=== PATIENT | male | born 1975 ===

== ENCOUNTER 2017-04-23 21:26 | Observation (INO) | payer BC, OTHER ==
[2017-04-23] MEDS ORDERED: Sodium Chloride 0.9% 10 ML Syringe FLUSH PRN (21:56)
[2017-04-23] MEDS ORDERED: Sodium Chloride 0.9% 2.5 ML Syringe FLUSH PRN (21:56)
[2017-04-23] MEDS ORDERED: HYDROmorphone 2 MG/ML Syringe IVPUSH ONE (22:04)
[2017-04-23] MEDS ORDERED: Ondansetron 4 MG/2 ML SDV IVPUSH ONE (22:04)
[2017-04-23] MEDS ORDERED: Pantoprazole 40 MG Vial IVPUSH ONE (22:04)
[2017-04-23] MEDS ORDERED: Sodium Chloride 0.9% 1,000 ML IV ONE (22:04)
--- NOTE | 2017-04-23 22:04 | EDM.PDOC ---
ED HPI GENERAL MEDICAL PROBLEM - General Chief Complaint: Abdominal Pain Stated Complaint: vomiting and diarrhea Time Seen by Provider: 04/23/17 21:44 - History of Present Illness INITIAL COMMENTS - FREE TEXT/NARRATIVE: HISTORY AND PHYSICAL: History of present illness: The patient is a 41-year-old man who has no diagnosed GI problem but presents with a long-standing history of loose and pasty stools for which she has been evaluated back in 2013 here with upper and lower endoscopies as well as at [facility] the beginning of March. He said that he has a long-standing history of these loose stools and when he went to [facility] in [place] and a local clinic he had a gallbladder ultrasound performed yesterday which was negative and he had evaluation by GI where in they did not do any imaging or lab tests but recommended that he increase fiber in his diet and they placed him on the medications and his current med list. Going to the patient and at bedside there was no plan for further testing. Patient has never had any abdominal surgeries and says that his loose stools are not black or bloody and they do vary depending on what he eats. Sometimes he will have more than usual and other times a day. The patient is not here tonight for that problem he is here tonight for 6 days of epigastric discomfort associated with nausea vomiting and change in his stools. The patient says his stools have been watery for the last 6 days which is unusual for him but again they are not black or bloody. He says that every time he tries to eat something he gets nauseated and wants to vomit. He has been vomiting whenever he puts in. He says he is very hungry and he has been losing weight because he has not been eating. His pain is localized in the epigastric area and does not radiate right or left. He has not taken anything specific [id number] in addition to his regular medications. He has not had any fevers chest pain or shortness of breath and no lower abdominal pain flank pain or urinary issues. The patient says that he does feel like he is dehydrated. He has not had any recent exotic travel and he has no history of any food intolerances Review of systems: As per history of present illness and below otherwise all systems reviewed and negative. Past medical history: As per history of present illness and as reviewed below otherwise noncontributory. Surgical history: As per history of present illness and as reviewed below otherwise noncontributory. Social history: No reported history of drug or alcohol abuse. Family history: As per history of present illness and as reviewed below otherwise noncontributory. Physical exam: Gen.: Well-developed well-nourished man who is nontoxic and vital signs were reviewed by me HEENT: Atraumatic, normocephalic, pupils reactive, negative for conjunctival pallor or scleral icterus, mucous membranes tacky, throat clear, neck supple, nontender, trachea midline. Lungs: Clear to auscultation, breath sounds equal bilaterally, chest nontender. Heart: S1S2, regular, negative for clicks, rubs, or JVD. Abdomen: Soft, nondistended, hyperactive bowel sounds and there is tenderness in the epigastric area without rebound or guarding. Negative for masses or hepatosplenomegaly. Negative for costovertebral tenderness. Pelvis: Stable nontender. Genitourinary: Deferred. Rectal: Deferred. Extremities: Atraumatic, negative for cords or calf pain. Neurovascular unremarkable. Neuro: Awake, alert, oriented. Cranial nerves II through XII unremarkable. Cerebellum unremarkable. Motor and sensory unremarkable throughout. Exam nonfocal. Diagnostics: CBC CMP amylase lipase lactic acid H pylori CRP UA CT scan of the abdomen and pelvis Therapeutics: IV fluids Protonix Zofran Dilaudid 0001: Case was discussed with Dr. Hinkle our hospitalist who accepts the patient for admission as long as Dr. Whipple our surgeon will be involved. I discussed the case with Dr. Whipple at [phone] and he will be on consult. I discussed with the patient and at bedside at length all the testing results and that although we have a lot of answers we also have a lot more questions and that we will admit him here and observe him and reevaluate tomorrow to see if he is improving or needs transfer to higher level of care. Impression: Abdominal pain vomiting and diarrhea rule out gallstone pancreatitis Definitive disposition and diagnosis as appropriate pending reevaluation and review of above. 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 Gastrointestinal History: Reports: GERD - Infectious Disease History Infectious Disease History: Reports: Chicken Pox Other Infectious Disease History: childhood - Past Surgical History HEENT Surgical History: Reports: Tonsillectomy Social & Family History - Tobacco Use Smoking Status *Q: Never Smoker Second Hand Smoke Exposure: No - Caffeine Use Caffeine Use: Reports: Coffee, Energy Drinks, Soda, Tea - Recreational Drug Use Recreational Drug Use: No ED ROS GENERAL - Review of Systems Review Of Systems: ROS reveals no pertinent complaints other than HPI. ED EXAM, GENERAL - Physical Exam Exam: See Below (See dictation) Course - Vital Signs Last Recorded V/S: Last Vital Signs Temp 36.2 C 04/23/17 23:41 Pulse 80 04/23/17 23:41 Resp 17 04/23/17 23:41 BP 105/70 04/23/17 23:41 Pulse Ox 97 04/23/17 23:41 - Orders/Labs/Meds Orders: Active Orders 24 hr Category Date Time Status Patient Status [ADT] Stat ADT 04/24/17 00:15 Ordered Communication Order [RC] STAT Care 04/23/17 21:55 Active Abdomen Pelvis w Cont [CT] Stat Exams 04/23/17 21:57 Taken UA W/MICROSCOPIC [URIN] Stat Lab 04/23/17 21:55 Uncollected Sodium Chloride 0.9% [Normal Saline] 1,000 ml Med 04/24/17 00:15 Ordered IV STAT Sodium Chloride 0.9% [Saline Flush] Med 04/23/17 21:56 Active 10 ml FLUSH ASDIRECTED PRN Sodium Chloride 0.9% [Saline Flush] Med 04/23/17 21:56 Active 2.5 ml FLUSH ASDIRECTED PRN Saline Lock Insert [OM.PC] Stat Oth 04/23/17 21:55 Ordered Medication Orders Sodium Chloride (Saline Flush) 10 ml FLUSH ASDIRECTED PRN PRN Reason: Keep Vein Open Last Admin: 04/23/17 22:26 Dose: 10 ml Sodium Chloride (Saline Flush) 2.5 ml FLUSH ASDIRECTED PRN PRN Reason: Keep Vein Open Last Admin: 04/23/17 22:25 Dose: 2.5 ml Labs: Laboratory Tests 04/23/17 04/23/17 04/23/17 Range/Units 22:13 22:13 22:13 WBC 15.24 H (4.0-11.0) K/uL RBC 5.60 (4.50-5.90) M/uL Hgb 16.7 (13.0-17.0) g/dL Hct 46.7 (38.0-50.0) % MCV 83.4 (80.0-98.0) fL MCH 29.8 (27.0-32.0) pg MCHC 35.8 (31.0-37.0) g/dL RDW Std Deviation 38.9 (28.0-62.0) fl RDW Coeff of Ethan 13 (11.0-15.0) % Plt Count 216 (150-400) K/uL MPV 10.90 (7.40-12.00) fL Neut % (Auto) 60.9 (48.0-80.0) % Lymph % (Auto) 12.3 L (16.0-40.0) % [place]ne % (Auto) 8.5 (0.0-15.0) % Eos % (Auto) 18.2 H (0.0-7.0) % Baso % (Auto) 0.1 (0.0-1.5) % Neut # (Auto) 9.3 H (1.4-5.7) K/uL Lymph # (Auto) 1.9 (0.6-2.4) K/uL [place]ne # (Auto) 1.3 H (0.0-0.8) K/uL Eos # (Auto) 2.8 H (0.0-0.7) K/uL Baso # (Auto) 0.0 (0.0-0.1) K/uL Nucleated RBC % 0.0 /100WBC Nucleated RBCs # 0 K/uL Lactate 1.1 (0.20-2.00) mmol/L Sodium 140 (136-146) mmol/L Potassium 3.5 (3.5-5.1) mmol/L Chloride 107 (98-110) mmol/L Carbon Dioxide 20 L (21-31) mmol/L BUN 14 (6.0-23.0) mg/dL Creatinine 1.0 (0.6-1.5) mg/dL Est Cr Clr Drug Dosing 105.63 mL/min Estimated GFR (MDRD) > 60.0 ml/min Glucose 109 (60-110) mg/dL Calcium 8.7 L (8.8-10.8) mg/dL Total Bilirubin 1.5 (0.1-1.5) mg/dL AST 230 H (5-40) IU/L ALT 290 H (8-54) IU/L Alkaline Phosphatase 469 H (40-150) C-Reactive Protein 0.58 H (0.0-0.5) mg/dL Total Protein 6.4 (6.0-8.0) g/dL Albumin 3.9 (3.5-5.0) g/dL Globulin 2.5 (2.0-3.5) g/dL Albumin/Globulin Ratio 1.6 (1.3-2.8) Amylase 243 H (10-90) U/L Lipase 448 H (7-80) U/L H. pylori IgG Antibody (NEG) 04/23/17 Range/Units 22:13 WBC (4.0-11.0) K/uL RBC (4.50-5.90) M/uL Hgb (13.0-17.0) g/dL Hct (38.0-50.0) % MCV (80.0-98.0) fL MCH (27.0-32.0) pg MCHC (31.0-37.0) g/dL RDW Std Deviation (28.0-62.0) fl RDW Coeff of Ethan (11.0-15.0) % Plt Count (150-400) K/uL MPV (7.40-12.00) fL Neut % (Auto) (48.0-80.0) % Lymph % (Auto) (16.0-40.0) % Duc[place]ne % (Auto) (0.0-15.0) % Eos % (Auto) (0.0-7.0) % Baso % (Auto) (0.0-1.5) % Neut # (Auto) (1.4-5.7) K/uL Lymph # (Auto) (0.6-2.4) K/uL Duc[place]ne # (Auto) (0.0-0.8) K/uL Eos # (Auto) (0.0-0.7) K/uL Baso # (Auto) (0.0-0.1) K/uL Nucleated RBC % /100WBC Nucleated RBCs # K/uL Lactate (0.20-2.00) mmol/L Sodium (136-146) mmol/L Potassium (3.5-5.1) mmol/L Chloride (98-110) mmol/L Carbon Dioxide (21-31) mmol/L BUN (6.0-23.0) mg/dL Creatinine (0.6-1.5) mg/dL Est Cr Clr Drug Dosing mL/min Estimated GFR (MDRD) ml/min Glucose (60-110) mg/dL Calcium (8.8-10.8) mg/dL Total Bilirubin (0.1-1.5) mg/dL AST (5-40) IU/L ALT (8-54) IU/L Alkaline Phosphatase (40-150) C-Reactive Protein (0.0-0.5) mg/dL Total Protein (6.0-8.0) g/dL Albumin (3.5-5.0) g/dL Globulin (2.0-3.5) g/dL Albumin/Globulin Ratio (1.3-2.8) Amylase (10-90) U/L Lipase (7-80) U/L H. pylori IgG Antibody NEGATIVE (NEG) Meds: Medications Generic Name Dose Route Start Last Admin Trade Name Freq PRN Reason Stop Dose Admin Sodium Chloride 10 ml 04/23/17 21:56 04/23/17 22:26 Saline Flush FLUSH 10 ml ASDIRECTED PRN Administration Keep Vein Open Sodium Chloride 2.5 ml 04/23/17 21:56 04/23/17 22:25 Saline Flush FLUSH 2.5 ml ASDIRECTED PRN Administration Keep Vein Open Discontinued Medications Generic Name Dose Route Start Last Admin Trade Name Freq PRN Reason Stop Dose Admin Hydromorphone HCl 1 mg 04/23/17 22:04 04/23/17 22:25 Dilaudid IVPUSH 04/23/17 22:05 1 mg ONETIME ONE Administration Sodium Chloride 1,000 mls @ 999 mls/hr 04/23/17 22:04 04/23/17 22:24 Normal Saline IV 04/23/17 23:04 999 mls/hr STAT ONE Administration Iopamidol 100 ml 04/23/17 22:25 04/23/17 22:26 Isovue Multipack-370 (76%) IVPUSH 04/23/17 22:26 100 ml ONETIME STA Administration Ondansetron HCl 4 mg 04/23/17 22:04 04/23/17 22:24 Zofran IVPUSH 04/23/17 22:05 4 mg ONETIME ONE Administration Pantoprazole Sodium 80 mg 04/23/17 22:04 04/23/17 22:26 Protonix Iv IVPUSH 04/23/17 22:05 80 mg .BOLUS ONE Administration Departure - Departure Time of Disposition: 00:18 Disposition: Refer to Observation Condition: Good Clinical Impression: Abdominal pain Qualifiers: Abdominal location: epigastric Qualified Code(s): R10.13 - Epigastric pain Vomiting Qualifiers: Vomiting type: unspecified Vomiting Intractability: non-intractable Nausea presence: with nausea Qualified Code(s): R11.2 - Nausea with vomiting, unspecified - Discharge Information Referrals: Kalen Buchanan MD [Primary Care Provider] - Forms: ED Department Discharge - My Orders Last 24 Hours: My Active Orders 04/23/17 21:55 Communication Order [RC] STAT UA W/MICROSCOPIC [URIN] Stat Saline Lock Insert [OM.PC] Stat 04/23/17 21:56 Sodium Chloride 0.9% [Saline Flush] 10 ml FLUSH ASDIRECTED PRN Sodium Chloride 0.9% [Saline Flush] 2.5 ml FLUSH ASDIRECTED PRN 04/23/17 21:57 Abdomen Pelvis w Cont [CT] Stat 04/24/17 00:15 Patient Status [ADT] Stat Sodium Chloride 0.9% [Normal Saline] 1,000 ml IV STAT - Assessment/Plan Last 24 Hours: My Active Orders 04/23/17 21:55 Communication Order [RC] STAT UA W/MICROSCOPIC [URIN] Stat Saline Lock Insert [OM.PC] Stat 04/23/17 21:56 Sodium Chloride 0.9% [Saline Flush] 10 ml FLUSH ASDIRECTED PRN Sodium Chloride 0.9% [Saline Flush] 2.5 ml FLUSH ASDIRECTED PRN 04/23/17 21:57 Abdomen Pelvis w Cont [CT] Stat 04/24/17 00:15 Patient Status [ADT] Stat Sodium Chloride 0.9% [Normal Saline] 1,000 ml IV STAT
[2017-04-23] MEDS ORDERED: Iopamidol 755 MG/ML 500 ML Multipack Bottle IVPUSH STA (22:25)
[2017-04-23 22:50] LABS: CHLORIDE,CL 107 mmol/L (98-110); SODIUM,NA 140 mmol/L (136-146)
[2017-04-24] MEDS ORDERED: Sodium Chloride 0.9% 1,000 ML IV ONE (00:15)
[2017-04-24] MEDS ORDERED: Morphine 2 MG/ML Syringe IVPUSH PRN (01:07)
[2017-04-24] MEDS ORDERED: Ondansetron 4 MG/2 ML SDV IVPUSH PRN (01:08)
[2017-04-24] MEDS: Sodium Chloride 0.9% 1,000 ML IV SCH ×3 (01:26→14:42)
--- NOTE | 2017-04-24 10:01 | PCM.CONS ---
H&P History of Present Illness - General Date of Service: 04/24/17 Admit Problem/Dx: Admission Diagnosis/Problem Admission Diagnosis/Problem Abdominal pain Source of Information: Patient, Family History Limitations: Reports: No Limitations - History of Present Illness Initial Comments - Free Text/Narative: 41 y/o gentleman admitted with 1 week history of abdominal pain, N/V and diarrhea. No particular food intolerances. No fever or chills. No unexplained weight loss. Symptom Onset Date: 04/18/17 Location: Reports: Abdomen Quality: Reports: Ache Severity: Moderate Improves with: Reports: Rest Worsens with: Reports: Eating Context: Reports: Sick Contact Associated Symptoms: Reports: Loss of Appetite, Nausea/Vomiting, Other (Diarrhea ). 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 Gastrointestinal History: Reports: GERD, Irritable Bowel Syndrome - Infectious Disease History Infectious Disease History: Reports: Chicken Pox Other Infectious Disease History: childhood - Past Surgical History HEENT Surgical History: Reports: Tonsillectomy Social & Family History - Family History Family Medical History: Noncontributory - Tobacco Use Smoking Status *Q: Never Smoker Second Hand Smoke Exposure: No - Caffeine Use Caffeine Use: Reports: Soda - Recreational Drug Use Recreational Drug Use: No H&P Review of Systems - Review of Systems: Review Of Systems: See Below General: Reports: Decreased Appetite. Denies: Fever, Chills, Weight Loss HEENT: Reports: No Symptoms Pulmonary: Denies: Shortness of Breath, Wheezing Cardiovascular: Reports: No Symptoms Gastrointestinal: Reports: Abdominal Pain, Diarrhea, Decreased Appetite, Nausea , Vomiting Genitourinary: Denies: Dysuria, Frequency, Burning, Pain, Urgency Musculoskeletal: Reports: No Symptoms Skin: Denies: Jaundice Psychiatric: Reports: No Symptoms Neurological: Reports: No Symptoms Hematologic/Lymphatic: Reports: No Symptoms Immunologic: Reports: No Symptoms Exam - Exam Exam: See Below - Vital Signs Vital Signs: Last Vital Signs Temp 97.8 F 04/24/17 08:00 Pulse 84 04/24/17 08:00 Resp 16 04/24/17 08:00 BP 124/71 04/24/17 08:00 Pulse Ox 97 04/24/17 08:00 Weight: 210 lb 5.136 oz - Exam Quality Assessment: No: Supplemental Oxygen General: Alert, Oriented, Cooperative HEENT: Conjunctiva Clear, Pupils Equal, Pupils Reactive. No: Scleral Icterus Neck: Supple Lungs: Clear to Auscultation, Normal Respiratory Effort Cardiovascular: Regular Rate, Regular Rhythm GI/Abdominal Exam: Normal Bowel Sounds, Soft, Non-Tender, No Organomegaly, No Distention, No Mass (Male) Exam: Normal Inspection Rectal (Males) Exam: Deferred Back Exam: Normal Inspection Extremities: Normal Inspection Peripheral Pulses: 4+: Posterior Tibial (L), Posterior Tibial (R), Dorsalis Pedis (L), Dorsalis Pedis (R) Skin: Warm, Dry, Intact. No: Rash, Petechia, Ecchymosis Neurological: Cranial Nerves Intact Neuro Extensive - Mental Status: Alert, Oriented x3, Normal Mood/Affect Psychiatric: Alert, Normal Affect, Normal Mood. No: Anxious, Depressed - Patient Data Lab Results Last 24 hrs: Laboratory Results - last 24 hr 04/24/17 Range/Units 01:20 Urine Color DARK YELLOW Urine Appearance CLEAR Urine pH 5.0 (5.0-8.0) Ur Specific [place] 1.010 (1.001-1.035) Urine Protein NEGATIVE (NEGATIVE) mg/dL Urine Glucose (UA) NEGATIVE (NEGATIVE) mg/dL Urine Ketones 15 H (NEGATIVE) mg/dL Urine Occult Blood NEGATIVE (NEGATIVE) Urine Nitrite NEGATIVE (NEGATIVE) Urine Bilirubin NEGATIVE (NEGATIVE) Urine Urobilinogen 0.2 (<2.0) EU/dL Ur Leukocyte Esterase NEGATIVE (NEGATIVE) Urine RBC 0-1 (0-2/HPF) Urine WBC 0-1 (0-5/HPF) Ur Epithelial Cells RARE (NONE-FEW) Urine Bacteria RARE (NEGATIVE) Urine Mucus LIGHT (NONE-MOD) Result Diagrams: 04/23/17 22:13 04/23/17 22:13 [place] Results Last 24 hrs: Microbiology 04/24/17 01:35 Campylobacter Antigen Assay - Final Stool / Feces - Stool, Liquid NEGATIVE CAMPYLOBACTER AG 04/24/17 01:35 Clostridium difficile Toxin A&B (M) - Final Stool / Feces - Stool, Liquid Negative for C.Diff Toxin/AG Consult PN Assessment/Plan Procedures: Procedures ASSAY OF TROPONIN QUANT (05/26/15) CHEST X-RAY 1 VIEW FRONTAL (05/26/15) COLONOSCOPY AND BIOPSY (01/23/14) COMPLETE CBC W/AUTO DIFF WBC (05/26/15) COMPREHEN METABOLIC PANEL (05/26/15) CONTRAST X-RAY EXAM OF COLON (12/12/13) CT HEAD/BRAIN W/O DYE (05/26/15) ECHO EXAM OF ABDOMEN (04/22/17) EGD BIOPSY SINGLE/MULTIPLE (01/23/14) EMERGENCY DEPT VISIT (05/26/15) HYDRATION IV INFUSION INIT (05/26/15) ROUTINE VENIPUNCTURE (05/26/15) SPECIAL STAINS GROUP 1 (01/23/14) TISSUE EXAM BY PATHOLOGIST (01/23/14) URINALYSIS AUTO W/SCOPE (05/26/15) (1) Abnormal liver function tests SNOMED Code(s): 708602963 Code(s): R79.89 - OTHER SPECIFIED ABNORMAL FINDINGS OF BLOOD CHEMISTRY Priority: Medium Current Visit: Yes (2) Hyperamylasemia SNOMED Code(s): 838888760 Code(s): R74.8 - ABNORMAL LEVELS OF OTHER SERUM ENZYMES Priority: Medium Current Visit: Yes (3) Abdominal pain SNOMED Code(s): 35960311 Code(s): R10.9 - UNSPECIFIED ABDOMINAL PAIN Priority: Medium Current Visit: Yes Qualifiers: Abdominal location: epigastric Qualified Code(s): R10.13 - Epigastric pain (4) Vomiting SNOMED Code(s): 356955436 Code(s): R11.10 - VOMITING, UNSPECIFIED Priority: Medium Current Visit: Yes Qualifiers: Vomiting type: unspecified Vomiting Intractability: non-intractable Nausea presence: with nausea Qualified Code(s): R11.2 - Nausea with vomiting, unspecified (5) Headache SNOMED Code(s): 40011565 Code(s): R51 - HEADACHE Priority: Low Current Visit: No Qualifiers: Intractability: not intractable (6) Diarrhea SNOMED Code(s): 44353609 Code(s): R19.7 - DIARRHEA, UNSPECIFIED Priority: Medium Current Visit: Yes Qualifiers: Diarrhea type: unspecified type Qualified Code(s): R19.7 - Diarrhea, unspecified Problem List Initiated/Reviewed/Updated: Yes Plan: Abdominal pain of unknown etiology with elevated LFT's and leucocytosis. Patient doesn't appear in acute distress this morning. CT report reportedly suggests cholelithiasis despite a negative GBUS. Note H pylori AB is negative. Recommend: 1) clear liquids, 2) NPO after midnight, 3) MRCP in the morning, 4) repeat LFT's in 12-24 hours. If MRCP is negative, consider EGD on an outpatient basis. Don't see any reason for emergent EGD today. Thank you.
--- NOTE | 2017-04-24 12:15 | PCM.HP ---
H&P History of Present Illness - General Admit Problem/Dx: Admission Diagnosis/Problem Admission Diagnosis/Problem Abdominal pain - History of Present Illness Initial Comments - Free Text/Narative: 41 yo male with pmh of IBS who presents with one week history of abdominal pain and loose stools. Patient reported epigastric tenderness. He also reports nausea and vomiting after eating food. He reports 15 or more loose stools a day. diarrhea is worse than his normal IBS symptoms. He denies any fevers or chills. In the ED he was noted to have elevated AST,at 230, ALT 290 , and Alk phos at 469 and lipase at 448. WBC was 15,240 and Bilirubin was normal. CT scan of abdomen reported cholelithiasis without evidence of cholecystitis and fluid rention within small bowel and liquid stool in colon. 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 Gastrointestinal History: Reports: GERD, Irritable Bowel Syndrome - Infectious Disease History Infectious Disease History: Reports: Chicken Pox Other Infectious Disease History: childhood - Past Surgical History HEENT Surgical History: Reports: Tonsillectomy Social & Family History - Family History Family Medical History: Noncontributory - Tobacco Use Smoking Status *Q: Never Smoker Second Hand Smoke Exposure: No - Caffeine Use Caffeine Use: Reports: Soda - Recreational Drug Use Recreational Drug Use: No H&P Review of Systems - Review of Systems: Review Of Systems: ROS reveals no pertinent complaints other than HPI. Exam - Exam Exam: See Below - Vital Signs Vital Signs: Last Vital Signs Temp 36.6 C 04/24/17 08:00 Pulse 84 04/24/17 08:00 Resp 16 04/24/17 08:00 BP 124/71 04/24/17 08:00 Pulse Ox 97 04/24/17 08:00 Weight: 95.4 kg - Exam Lungs: Clear to Auscultation, Normal Respiratory Effort Cardiovascular: Regular Rate, Regular Rhythm GI/Abdominal Exam: Normal Bowel Sounds, Soft, Non-Tender. No: No Mass, Distended, Rebound Extremities: Normal Range of Motion, No Pedal Edema Skin: Warm, Dry, Intact - Patient Data Lab Results Last 24 hrs: Laboratory Results - last 24 hr 04/24/17 Range/Units 01:20 Urine Color DARK YELLOW Urine Appearance CLEAR Urine pH 5.0 (5.0-8.0) Ur Specific [place] 1.010 (1.001-1.035) Urine Protein NEGATIVE (NEGATIVE) mg/dL Urine Glucose (UA) NEGATIVE (NEGATIVE) mg/dL Urine Ketones 15 H (NEGATIVE) mg/dL Urine Occult Blood NEGATIVE (NEGATIVE) Urine Nitrite NEGATIVE (NEGATIVE) Urine Bilirubin NEGATIVE (NEGATIVE) Urine Urobilinogen 0.2 (<2.0) EU/dL Ur Leukocyte Esterase NEGATIVE (NEGATIVE) Urine RBC 0-1 (0-2/HPF) Urine WBC 0-1 (0-5/HPF) Ur Epithelial Cells RARE (NONE-FEW) Urine Bacteria RARE (NEGATIVE) Urine Mucus LIGHT (NONE-MOD) Result Diagrams: 04/25/17 06:01 04/25/17 06:01 [place] Results Last 24 hrs: Microbiology 04/24/17 01:35 Campylobacter Antigen Assay - Final Stool / Feces - Stool, Liquid NEGATIVE CAMPYLOBACTER AG 04/24/17 01:35 Clostridium difficile Toxin A&B (M) - Final Stool / Feces - Stool, Liquid Negative for C.Diff Toxin/AG *Q Meaningful Use (ADM) - VTE *Q VTE Criteria *Q: - Stroke *Q Stroke Criteria *Q: - AMI *Q AMI Criteria *Q: Problem List Initiated/Reviewed/Updated: Yes Orders Last 24hrs: Active Orders 24 hr Category Date Time Status Antiembolic Devices [RC] PER UNIT ROUTINE Care 04/24/17 12:08 Ordered Intake and Output [RC] QSHIFT Care 04/24/17 12:08 Ordered Notify Provider Consults [RC] ASDIRECTED Care 04/24/17 00:19 Active Oxygen Therapy [RC] PRN Care 04/24/17 12:07 Ordered Up ad Nicolle [RC] ASDIRECTED Care 04/24/17 12:07 Ordered VTE/DVT Education [RC] PER UNIT ROUTINE Care 04/24/17 12:07 Ordered Vital Signs [RC] Q4H Care 04/24/17 12:07 Ordered Consult to Physician [CONS] Stat Cons 04/24/17 00:19 Active Clear Liquid Diet [DIET] Diet 04/24/17 Breakfast Ordered NPO After Midnight [Nothing per Oral After Midnight Diet 04/24/17 Dinner Ordered Diet] [DIET] Abdomen w Cont [MR] Routine Exams 04/24/17 12:04 Ordered CBC WITH AUTO DIFF [HEME] Routine Lab 04/24/17 12:03 Ordered COMPREHENSIVE METABOLIC PN,CMP [CHEM] Routine Lab 04/24/17 12:03 Ordered CULTURE STOOL + CAMPY+SHIGATOX [RM] Routine Lab 04/24/17 01:35 Results LIPASE [CHEM] Routine Lab 04/24/17 12:03 Ordered LIPID PANEL [CHEM] Routine Lab 04/24/17 12:10 Ordered Morphine Med 04/24/17 01:07 Active 2 mg IVPUSH Q3H PRN Ondansetron [Zofran] Med 04/24/17 01:08 Active 4 mg IVPUSH Q3H PRN Sodium Chloride 0.9% [Normal Saline] 1,000 ml Med 04/24/17 01:15 Active IV ASDIRECTED Sequential Compression Device [OM.PC] Per Unit Routine Oth 04/24/17 12:08 Ordered Resuscitation Status Routine Resus Stat 04/24/17 12:07 Ordered Medication Orders Sodium Chloride (Normal Saline) 1,000 mls @ 150 mls/hr IV ASDIRECTED FRANKY Last Admin: 04/24/17 08:07 Dose: 150 mls/hr Infusion: 04/24/17 08:07 Dose: 150 mls/hr Admin: 04/24/17 01:26 Dose: 150 mls/hr Morphine Sulfate (Morphine) 2 mg IVPUSH Q3H PRN PRN Reason: Pain Last Admin: 04/24/17 01:24 Dose: 2 mg Ondansetron HCl (Zofran) 4 mg IVPUSH Q3H PRN PRN Reason: Nausea/Vomiting Sodium Chloride (Saline Flush) 10 ml FLUSH ASDIRECTED PRN PRN Reason: Keep Vein Open Last Admin: 04/23/17 22:26 Dose: 10 ml Sodium Chloride (Saline Flush) 2.5 ml FLUSH ASDIRECTED PRN PRN Reason: Keep Vein Open Last Admin: 04/23/17 22:25 Dose: 2.5 ml Assessment/Plan Comment:: 41 yo admitted for pancreatitis and gastroenteritis. We will continue fluid rescucitation with IV normal saline. PAtient symptoms have improved and abdominal pain has resolved so will start clear liquid diet. We will recheck CBC and CMP. Stool studies have been sent. He does have possible gallstone pancreatitis. Dr. Whipple was consulted and recommended MRCP tomorrow.
[2017-04-24 12:44] LABS: CHLORIDE,CL 113 mmol/L (98-110); SODIUM,NA 141 mmol/L (136-146)
[2017-04-24] MEDS: Pantoprazole 40 MG Vial IVPUSH SCH ×2 (13:04→22:24)
[2017-04-24] MEDS ORDERED: Acetaminophen 325 MG Tab PO PRN (13:32)
[2017-04-24] MEDS: Loperamide 2 MG Cap PO PRN (22:32)
[2017-04-25] MEDS: Sodium Chloride 0.9% 1,000 ML IV SCH (00:27)
[2017-04-25 06:32] LABS: CHLORIDE,CL 112 mmol/L (98-110); SODIUM,NA 141 mmol/L (136-146)
[2017-04-25] MEDS: Pantoprazole 40 MG Vial IVPUSH SCH (08:36)
[2017-04-25] MEDS: Loperamide 2 MG Cap PO PRN (08:41)
--- NOTE | 2017-04-25 15:29 | MR ---
EXAMINATION: MRCP HISTORY: Gallstone pancreatitis COMPARISON: CT dated 04/23/2017 TECHNIQUE: Multiplanar and multisequence Noncontrast imaging obtained of the abdomen. Thick slab map reconstructions obtained. FINDINGS: The liver and spleen are normal in signal characteristics. The adrenal glands appear normal . Pancreas appears grossly unremarkable in signal without significant pancreatic edema. There is like ly a trace pericholecystic fluid noted. The gallbladder itself however is not notably distended. The cystic duct has a long course which parallels the common bile duct and inserts at the ampulla. Pancre atic and common bile ducts are normal in caliber. No definite filling defect within the common bile d uct. A filling defect within the proximal cystic duct near the gallbladder is not excluded. No bulky retroperitoneal lymphadenopathy. The kidneys appear normal. No abnormal bone marrow signal. IMPRESSION: 1. Trace pericholecystic fluid, this may represent cholecystitis. 2. The cystic duct is apparent and has a long course which parallels the common bile duct and inserts at the ampulla of [place]. 3. No evidence of choledocholithiasis.
[2017-04-25 16:04] VITALS: BP 118/70
--- NOTE | 2017-04-25 16:46 | PCM.DCSUM1 ---
Discharge Summary - Hospital Course Brief History: This 41 year o male with pmh of IBS who presents with one week history of epigastric abdominal pain, N/V, early satiety and loose stools. Patient reported epigastric tenderness. He also reports nausea and vomiting after eating food. He reports 15 or more loose stools a day. diarrhea is worse than his normal IBS symptoms. He denies any fevers or chills. In the ED he was noted to have elevated AST,at 230, ALT 290 , and Alk phos at 469 and lipase at 448. WBC was 15,240 and Bilirubin was normal. CT scan of abdomen reported cholelithiasis without evidence of cholecystitis and fluid rention within small bowel and liquid stool in colon. - Discharge Data Discharge Date: 04/25/17 Discharge Disposition: Home, Self-Care 01 Condition: Good - Discharge Diagnosis/Problem(s) (1) Abdominal pain SNOMED Code(s): 45423427 ICD Code: R10.9 - UNSPECIFIED ABDOMINAL PAIN Status: Acute Priority: Medium Qualifiers: Abdominal location: epigastric Qualified Code(s): R10.13 - Epigastric pain (2) Abnormal liver function tests SNOMED Code(s): 898718481 ICD Code: R79.89 - OTHER SPECIFIED ABNORMAL FINDINGS OF BLOOD CHEMISTRY Status: Acute Priority: Medium (3) Diarrhea SNOMED Code(s): 11140511 ICD Code: R19.7 - DIARRHEA, UNSPECIFIED Status: Acute Priority: Medium Qualifiers: Diarrhea type: unspecified type Qualified Code(s): R19.7 - Diarrhea, unspecified (4) Vomiting SNOMED Code(s): 479199806 ICD Code: R11.10 - VOMITING, UNSPECIFIED Status: Acute Priority: Medium Qualifiers: Vomiting type: unspecified Vomiting Intractability: non-intractable Nausea presence: with nausea Qualified Code(s): R11.2 - Nausea with vomiting, unspecified - Patient Summary/Data Consults: Consultations 04/24/17 00:19 Consult to Physician [CONS] Stat - Patient Instructions Diet: Drink 8-10+ Glasses/Day, Full Liquid Diet, GI Soft/Low Residue/Low Fiber Diet, Other: low fat Activity: As Tolerated Showering/Bathing: May Shower Notify Provider of: Fever, Increased Pain, Swelling and Redness, Drainage, Nausea and/or Vomiting Other/Special Instructions: Dr Gabino Bynum's nurse will be contacting you for appointment with his office. He will refer you to General surgeon for gallbladder removal. - Discharge Plan Home Medications: Home Meds Hyoscyamine Sulfate [Hyoscyamine Sulfate] 1 tab PO ASDIRECTED PRN 04/23/17 [ History] Omeprazole [Omeprazole] 20 mg PO DAILY 04/23/17 [History] Patient Handouts: Abdominal Pain, Adult Referrals: [facility] [Outside] Da Lloyd MD [Ordering Only Provider] - 06/20/17 3:30 pm - Discharge Summary/Plan Comment DC Time >30 min.: No Discharge Summary/Plan Comment: Discharge Diagnoses: Gallstone induce pancreatitis-resolved Diarrhea- noninfectious IBS Paul was admitted and treated with IVFs fluid for suspected gall stone induced pancreatitis. Dr. Whipple was consulted and recommended MRCP to be obtained. He was given fluids and after a period of NPO, he tolerated some CL and soft diet without increasing pain or N/V. MRCP was obtained which showed trace pericholecystic fluid, may represent cholecystitis, no filling defect in common bile duct and gallbladder is not noteably distended, no evidence of choledocholithiasis. I spoke with Dr. Whipple, who was concerned regarding the esosinophilia and recommended I speak with GI specialist prior to a surgeon for cholecystectomy. I spoke with Dr. Lloyd, at [facility]. He recommended conitnued treated with IVFs until patient able to tolerated diet and to monitor LFTs upon discharge if not back to baseline. He will gladly see patient, but feels the diarrhea is not an urgent matter and he will address this with the patient. But he will see him and then make the referral to the surgeon for the cholecystectomy. All of this information was relayed to patient and . KYLEIGH Bynum Dr's nurse will contact them with appointment date sooner than previously scheduled Jun 20. He will be discharged home with home medications. He was tolerating soft bland diet. Diarrhea continues but is again not infectious and near baseline. He does need further workup for IBS like symptoms. he is to return to clinic for check for CMP to monitor LFTs in a couple days. Follow up in [place] as arranged. He is to return to ED or clinic of concerns should arise. - General Info Date of Service: 04/25/17 Admission Dx/Problem (Free Text: Admission Diagnosis/Problem Admission Diagnosis/Problem Abdominal pain Subjective Update: Patient doing well scant tenderness epigastric. Tolerating CL diet and soft bland after MRCP. Requesting discharge tonight. Denies chest pain or SOB. Diarrhea continues. Functional Status: Reports: Pain Controlled, Tolerating Diet, Ambulating, Urinating - Review of Systems Pulmonary: Reports: No Symptoms. Denies: Shortness of Breath Cardiovascular: Reports: No Symptoms. Denies: Chest Pain Gastrointestinal: Reports: Diarrhea, Flatus. Denies: Abdominal Pain, Nausea, Vomiting Genitourinary: Reports: No Symptoms. Denies: Dysuria, Frequency, Burning, Pain Neurological: Reports: No Symptoms. Denies: Confusion Psychiatric: Reports: No Symptoms. Denies: Confusion - Patient Data Vitals - Most Recent: Last Vital Signs Temp 97.6 F 04/25/17 16:00 Pulse 89 04/25/17 16:00 Resp 22 H 04/25/17 16:00 BP 118/70 04/25/17 16:00 Pulse Ox 98 04/25/17 16:00 Weight - Most Recent: 94.256 kg I&O - Last 24 hours: Intake & Output 04/25/17 04/25/17 04/25/17 06:59 14:59 22:59 Intake Total 480 Output Total 400 Balance 80 Lab Results - Last 24 hrs: Laboratory Results - last 24 hr 04/25/17 04/25/17 Range/Units 06:01 06:01 WBC 11.81 H (4.0-11.0) K/uL RBC 4.67 (4.50-5.90) M/uL Hgb 13.7 (13.0-17.0) g/dL Hct 39.7 (38.0-50.0) % MCV 85.0 (80.0-98.0) fL MCH 29.3 (27.0-32.0) pg MCHC 34.5 (31.0-37.0) g/dL RDW Std Deviation 39.8 (28.0-62.0) fl RDW Coeff of Ethan 13 (11.0-15.0) % Plt Count 172 (150-400) K/uL MPV 10.40 (7.40-12.00) fL Neut % (Auto) 40.8 L (48.0-80.0) % Lymph % (Auto) 20.9 (16.0-40.0) % [place] % (Auto) 4.4 (0.0-15.0) % Eos % (Auto) 33.8 H (0.0-7.0) % Baso % (Auto) 0.1 (0.0-1.5) % Neut # (Auto) 4.8 (1.4-5.7) K/uL Lymph # (Auto) 2.5 H (0.6-2.4) K/uL [place] # (Auto) 0.5 (0.0-0.8) K/uL Eos # (Auto) 4.0 H (0.0-0.7) K/uL Baso # (Auto) 0.0 (0.0-0.1) K/uL Nucleated RBC % 0.0 /100WBC Nucleated RBCs # 0 K/uL Sodium 141 (136-146) mmol/L Potassium 3.4 L (3.5-5.1) mmol/L Chloride 112 H (98-110) mmol/L Carbon Dioxide 22 (21-31) mmol/L BUN 4 L (6.0-23.0) mg/dL Creatinine 0.8 (0.6-1.5) mg/dL Est Cr Clr Drug Dosing 131.50 mL/min Estimated GFR (MDRD) > 60.0 ml/min Glucose 92 (60-110) mg/dL Calcium 7.9 L (8.8-10.8) mg/dL Total Bilirubin 0.5 (0.1-1.5) mg/dL AST 40 (5-40) IU/L ALT 136 H (8-54) IU/L Alkaline Phosphatase 281 H (40-150) Total Protein 5.1 L (6.0-8.0) g/dL Albumin 3.2 L (3.5-5.0) g/dL Globulin 1.9 L (2.0-3.5) g/dL Albumin/Globulin Ratio 1.7 (1.3-2.8) SHARON Results - Last 24 hrs: Microbiology 04/24/17 01:35 Campylobacter Antigen Assay - Final Stool / Feces - Stool, Liquid NEGATIVE CAMPYLOBACTER AG - Final NEGATIVE FOR SHIGA TOXIN 1 - Final NEGATIVE FOR SHIGA TOXIN 2 Med Orders - Current: Current Medications Acetaminophen (Tylenol) 325 mg PO Q6H PRN PRN Reason: Headache Last Admin: 04/24/17 13:38 Dose: 325 mg Sodium Chloride (Normal Saline) 1,000 mls @ 150 mls/hr IV ASDIRECTED FRANKY Last Admin: 04/25/17 00:27 Dose: 150 mls/hr Loperamide HCl (Imodium) 4 mg PO Q6H PRN PRN Reason: diarrhea Last Admin: 04/25/17 08:41 Dose: 4 mg Morphine Sulfate (Morphine) 2 mg IVPUSH Q3H PRN PRN Reason: Pain Last Admin: 04/24/17 01:24 Dose: 2 mg Ondansetron HCl (Zofran) 4 mg IVPUSH Q3H PRN PRN Reason: Nausea/Vomiting Pantoprazole Sodium (Protonix Iv) 40 mg IVPUSH Q12HR FRANKY Last Admin: 04/25/17 08:36 Dose: 40 mg Sodium Chloride (Saline Flush) 10 ml FLUSH ASDIRECTED PRN PRN Reason: Keep Vein Open Last Admin: 04/23/17 22:26 Dose: 10 ml Sodium Chloride (Saline Flush) 2.5 ml FLUSH ASDIRECTED PRN PRN Reason: Keep Vein Open Last Admin: 04/23/17 22:25 Dose: 2.5 ml Discontinued Medications Hydromorphone HCl (Dilaudid) 1 mg IVPUSH ONETIME ONE Stop: 04/23/17 22:05 Last Admin: 04/23/17 22:25 Dose: 1 mg Sodium Chloride (Normal Saline) 1,000 mls @ 999 mls/hr IV STAT ONE Stop: 04/23/17 23:04 Last Admin: 04/23/17 22:24 Dose: 999 mls/hr Sodium Chloride (Normal Saline) 1,000 mls @ 999 mls/hr IV STAT ONE Stop: 04/24/17 01:15 Last Admin: 04/24/17 00:22 Dose: 999 mls/hr Iopamidol (Isovue Multipack-370 (76%)) 100 ml IVPUSH ONETIME STA Stop: 04/23/17 22:26 Last Admin: 04/23/17 22:26 Dose: 100 ml Ondansetron HCl (Zofran) 4 mg IVPUSH ONETIME ONE Stop: 04/23/17 22:05 Last Admin: 04/23/17 22:24 Dose: 4 mg Pantoprazole Sodium (Protonix Iv) 80 mg IVPUSH .BOLUS ONE Stop: 04/23/17 22:05 Last Admin: 04/23/17 22:26 Dose: 80 mg - Exam General: Reports: Alert, Oriented, Cooperative, No Acute Distress Lungs: Reports: Clear to Auscultation, Normal Respiratory Effort Cardiovascular: Reports: Regular Rate, Regular Rhythm GI/Abdominal Exam: Normal Bowel Sounds, Soft, No Organomegaly, No Distention, No Abnormal Bruit, No Mass, Pelvis Stable, Tender (scant tenderness to epigastric region) Extremities: Normal Inspection, Normal Range of Motion, Non-Tender, No Pedal Edema, Normal Capillary Refill Neurological: Reports: No New Focal Deficit Psy/Mental Status: Reports: Alert, Normal Affect, Normal Mood *Q Meaningful Use (DIS) - VTE *Q VTE Criteria *Q: - Stroke *Q Stroke Criteria *Q: - AMI *Q AMI Criteria *Q:
--- NOTE | 2017-04-25 17:41 | CT ---
EXAM DATE: 04/24/17 PATIENT'S AGE: 41 Patient: SARA BRADSHAW Facility: [place], [place] Site . Site : 1975 Study: CT Abdomen/Pelvis [id number] 11:22:17 PM Ordering Physician: Renetta Monsivais Final Report: INDICATION: Epigastric pain. Recent negative ultrasound. TECHNIQUE: CT abdomen and pelvis acquired with 100 mL of Isovue 370 IV contrast. COMPARISON: No prior CT available. FINDINGS: Lower chest: Unremarkable. Liver: Too small to characterize low-density lesions in the left lobe likely represent cysts. Spleen: Unremarkable. Pancreas: Unremarkable. Gallbladder and bile ducts: Calcified stones above the neck of the gallbladder. No CT evidence of cholecystitis. No biliary ductal dilatation. Kidneys: No evidence of urolithiasis or hydroureteronephrosis. Adrenal glands: 9 mm nodule in the right adrenal gland cannot be definitely characterized as an adenoma on the basis of this enhanced study. The adrenal glands are otherwise unremarkable. GI tract: There is fluid retention within small bowel and liquid stool throughout the colon. No discrete bowel wall thickening. No bowel obstruction. The appendix is normal in appearance. No free air or free fluid. Vascular structures: Unremarkable. Lymph nodes: Unremarkable. Pelvic Organs: Unremarkable. Bones: No acute abnormality. IMPRESSION: Cholelithiasis about the neck of the gallbladder. No CT evidence of cholecystitis. No biliary ductal dilatation. Fluid retention within small bowel and liquid stool in the colon suggesting a nonspecific enteritis. No bowel obstruction. 9 mm right adrenal nodule is incompletely characterized but thought to most likely represent a benign adenoma. Dictated by Carroll Agarwal MD @ 04/23/2017 11:34:38 PM Dictated by: Carroll Agarwal MD @ 04/23/2017 23:35:03 (Electronic Signature) Report Signed by Proxy. CHELSEA
== END 2017-04-25 17:15 | disposition home or self-care (01) ==
LOC: MW.ED 21:26 → MW.MS 04-24 00:15
PROVIDERS: ADMIT Internal Medicine; ATTEND Internal Medicine
DX: K85.10 Biliary acute pancreatitis without necrosis or infection (principal); R79.89 Other specified abnormal findings of blood chemistry; K80.20 Calculus of gallbladder without cholecystitis without obstruction; K58.0 Irritable bowel syndrome with diarrhea; K21.9 Gastro-esophageal reflux disease without esophagitis; I69.398 Other sequelae of cerebral infarction; H91.92 Unspecified hearing loss, left ear; R74.8 Abnormal levels of other serum enzymes; R51 Headache; Z79.899 Other long term (current) drug therapy; Z88.8 Allergy status to other drugs, medicaments and biological substances; Z90.89 Acquired absence of other organs
CPT/HCPCS: 36415; 74177; 74181; 80053; 80061; 81001; 82150; 83605; 83690; 85025; 86140; 86677; 87046; 87324; 87328; 87329; 87899; 96361; 96374; 96375; 96376; 99285; A9270; C9113; G0378; J1170; J2270; J2405; J7040; Q9967; 99284

== ENCOUNTER 2017-04-29 05:35 | Inpatient (IN) | payer BC, OTHER ==
[2017-04-29] MEDS ORDERED: Sodium Chloride 0.9% 2.5 ML Syringe FLUSH PRN (05:55)
[2017-04-29] MEDS ORDERED: Sodium Chloride 0.9% 10 ML Syringe FLUSH PRN (05:55)
[2017-04-29] MEDS ORDERED: Sodium Chloride 0.9% 1,000 ML IV ONE (05:55)
[2017-04-29] MEDS ORDERED: HYDROmorphone 2 MG/ML Syringe IVPUSH ONE (05:55)
[2017-04-29] MEDS ORDERED: Ondansetron 4 MG/2 ML SDV IVPUSH ONE (05:55)
--- NOTE | 2017-04-29 06:05 | EDM.PDOC ---
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 The patient had had an outpatient gallbladder ultrasound which is negative but then presented to me with severe upper abdominal pain nausea and vomiting and had a CAT scan performed and labs in the ER which revealed an elevated WBC count elevated lipase and elevated liver enzymes. CT scan showed gallstones but no evidence of issues of the pancreas. Due to the conflicting studies and the patient's level of pain he was admitted to the hospital and reported to the medicine service that he had a diagnosis of IBS and that the diarrhea when he was admitted was more loose and more frequent than usual. He had never had any fevers or chills chest pain or shortness of breath. He was treated when he was here with IV fluids and a suspected gallstone induced pancreatitis. Dr. Whipple the surgeon was consulted and recommended an MRCP to be performed which was done and revealed trace pericholecystic fluid which could represent cholecystitis but no filling defect in the common bile duct no distention of the gallbladder and no evidence of choledocholithiasis. The team here spoke with Dr. Lloyd, a outside installer apprentice at [facility] in [place] who recommended continued IV fluids until the patient is able to tolerate diet and to monitor his LFTs. He had an appointment scheduled to see this GI doctor on June 19 to evaluate his IBS symptoms and the patient was feeling improved so is discharged home. He was told that the GI physician's office would contact him to move the appointment up sooner but according to the patient know what has contacted them yet. He followed up with his provider Dr. Mera who had a phone conversation with the outside installer apprentice and, according to the patient, his primary was told that his gallbladder needed to come out first and that the diarrhea workup could be secondary. Patient had repeat labs done 1-2 days after discharge performed to monitor the LFTs and on my review of them they're very similar to the results he had when he was discharged but improved from when I had admitted him. The patient said he was tolerating the discomfort using his medications that he was given by Dr. Mera, oxycodone and tramadol, which he was using very sparingly but then yesterday at 2 PM and had increased intensity of his upper abdominal pain in the epigastrium radiating to both sides associated with nausea and vomiting of bile. He did not have a fever back pain or chest pain. The patient said initially he took the pain medications and it seemed to help the pain but this morning he started vomiting the bile again and is having severe pain and cannot tolerate by mouth. The patient is again very frustrated with this pain and feels that he needs to have his gallbladder removed. Does not want to have Dr. Whipple involved in this case it is specifically stated that to me. He continues to have these frequent bowel movements since his discharge but they' re not black or bloody and he has never had any vomiting over black or bloody vomitus. Review of systems: As per history of present illness and below otherwise all systems reviewed and negative. Past medical history: As per history of present illness and as reviewed below otherwise noncontributory. Surgical history: As per history of present illness and as reviewed below otherwise noncontributory. Social history: No reported history of drug or alcohol abuse. Family history: As per history of present illness and as reviewed below otherwise noncontributory. Physical exam: General: Well-developed well-nourished man who is nontoxic and moves easily in the ED without distress. His vital signs reviewed by me HEENT: Atraumatic, normocephalic, negative for conjunctival pallor or scleral icterus, mucous membranes tacky, throat clear, neck supple, nontender, trachea midline. Lungs: Clear to auscultation, breath sounds equal bilaterally, chest nontender. Heart: S1S2, regular rate and rhythm no overt murmurs Abdomen: Soft, nondistended, mild tenderness on deep palpation in the epigastrium and slightly to the right but there is no left upper abdominal pain no tympany on percussion and bowel sounds are normoactive. There is no rebound or guarding on my evaluation. Negative for masses or hepatosplenomegaly. Pelvis: Deferred Genitourinary: Deferred. Rectal: Deferred. Extremities: Atraumatic, negative for cords or calf pain. Neurovascular unremarkable. Neuro: Awake, alert, oriented. Cranial nerves II through XII unremarkable. Cerebellum unremarkable. Motor and sensory unremarkable throughout. Exam nonfocal. skin: Normal turgor no evidence of any diaphoresis Diagnostics: CBC CMP amylase lipase lactic acid Therapeutics: IV fluids Zofran Dilaudid 0708: Case was discussed with Dr. Cabrera our surgeon. She is aware of this case and had spoken to the patient and family yesterday about being seen in clinic and advising him that if his pain persisted to come to the ER. She wants the patient to be admitted to the hospitalist and she will do a formal consult floor. I will discuss this case with our hospitalist Dr. Hinkle and plan for observation admission Impression: Recurrent abdominal pain Definitive disposition and diagnosis as appropriate pending reevaluation and review of above. 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 Cardiovascular History: Reports: None Respiratory History: Reports: None Gastrointestinal History: Reports: GERD, Irritable Bowel Syndrome, Other (See Below) Other Gastrointestinal History: Gallstones Genitourinary History: Reports: None Neurological History: Reports: None Psychiatric History: Reports: None Endocrine/Metabolic History: Reports: None Hematologic History: Reports: None Immunologic History: Reports: None Oncologic (Cancer) History: Reports: None Dermatologic History: Reports: None - Infectious Disease History Infectious Disease History: Reports: Chicken Pox Other Infectious Disease History: childhood - Past Surgical History Head Surgeries/Procedures: Reports: None HEENT Surgical History: Reports: Tonsillectomy GI Surgical History: Reports: None Social & Family History - Family History Family Medical History: Noncontributory - Tobacco Use Smoking Status *Q: Never Smoker Second Hand Smoke Exposure: No - Caffeine Use Caffeine Use: Reports: Soda - Recreational Drug Use Recreational Drug Use: No ED ROS GENERAL - Review of Systems Review Of Systems: ROS reveals no pertinent complaints other than HPI. ED EXAM, GENERAL - Physical Exam Exam: See Below (See dictation) Course - Vital Signs Last Recorded V/S: Last Vital Signs Temp 36.6 C 04/29/17 05:43 Pulse 108 H 04/29/17 05:43 Resp 18 04/29/17 05:43 BP 127/83 04/29/17 05:43 Pulse Ox 98 04/29/17 05:43 - Orders/Labs/Meds Orders: Active Orders 24 hr Category Date Time Status Patient Status [ADT] Stat ADT 04/29/17 07:14 Ordered Notify Provider Consults [RC] ASDIRECTED Care 04/29/17 07:14 Ordered Consult to Physician [CONS] Stat Cons 04/29/17 07:14 Ordered Sodium Chloride 0.9% [Saline Flush] Med 04/29/17 05:55 Active 10 ml FLUSH ASDIRECTED PRN Sodium Chloride 0.9% [Saline Flush] Med 04/29/17 05:55 Active 2.5 ml FLUSH ASDIRECTED PRN Saline Lock Insert [OM.PC] Stat Oth 04/29/17 05:55 Ordered Medication Orders Sodium Chloride (Saline Flush) 10 ml FLUSH ASDIRECTED PRN PRN Reason: Keep Vein Open Sodium Chloride (Saline Flush) 2.5 ml FLUSH ASDIRECTED PRN PRN Reason: Keep Vein Open Labs: Laboratory Tests 04/29/17 04/29/17 04/29/17 Range/Units 06:06 06:06 06:06 WBC 14.11 H (4.0-11.0) K/uL RBC 5.20 (4.50-5.90) M/uL Hgb 15.5 (13.0-17.0) g/dL Hct 43.5 (38.0-50.0) % MCV 83.7 (80.0-98.0) fL MCH 29.8 (27.0-32.0) pg MCHC 35.6 (31.0-37.0) g/dL RDW Std Deviation 39.1 (28.0-62.0) fl RDW Coeff of Ethan 13 (11.0-15.0) % Plt Count 183 (150-400) K/uL MPV 10.60 (7.40-12.00) fL Add Manual Diff YES Neutrophils % (Manual) 35 L (48.0-80.0) % Band Neutrophils % 1 % Lymphocytes % (Manual) 23 (16.0-40.0) % Monocytes % (Manual) 1 (0.0-15.0) % Eosinophils % (Manual) 40 H (0.0-7.0) % Nucleated RBC % 0.0 /100WBC Absolute Seg Neuts 4.9 (1.4-5.7) Band Neutrophils # 0.1 Lymphocytes # (Manual) 3.2 H (0.6-2.4) Monocytes # (Manual) 0.1 (0.0-0.8) Eosinophils # (Manual) 5.6 H (0.0-0.7) Nucleated RBCs # 0 K/uL Lactate 0.8 (0.20-2.00) mmol/L Sodium 140 (136-146) mmol/L Potassium 3.4 L (3.5-5.1) mmol/L Chloride 106 (98-110) mmol/L Carbon Dioxide 24 (21-31) mmol/L BUN 6 (6.0-23.0) mg/dL Creatinine 1.0 (0.6-1.5) mg/dL Est Cr Clr Drug Dosing 105.63 mL/min Estimated GFR (MDRD) > 60.0 ml/min Glucose 93 (60-110) mg/dL Calcium 9.1 (8.8-10.8) mg/dL Total Bilirubin 0.7 (0.1-1.5) mg/dL AST 78 H (5-40) IU/L ALT 163 H (8-54) IU/L Alkaline Phosphatase 373 H (40-150) Total Protein 6.2 (6.0-8.0) g/dL Albumin 3.9 (3.5-5.0) g/dL Globulin 2.3 (2.0-3.5) g/dL Albumin/Globulin Ratio 1.7 (1.3-2.8) Amylase 45 (10-90) U/L Lipase 25 (7-80) U/L Meds: Medications Generic Name Dose Route Start Last Admin Trade Name Camron PRN Reason Stop Dose Admin Sodium Chloride 10 ml 04/29/17 05:55 Saline Flush FLUSH ASDIRECTED PRN Keep Vein Open Sodium Chloride 2.5 ml 04/29/17 05:55 Saline Flush FLUSH ASDIRECTED PRN Keep Vein Open Discontinued Medications Generic Name Dose Route Start Last Admin Trade Name Camron PRN Reason Stop Dose Admin Hydromorphone HCl 1 mg 04/29/17 05:55 04/29/17 06:08 Dilaudid IVPUSH 04/29/17 05:56 1 mg ONETIME ONE Administration Sodium Chloride 1,000 mls @ 999 mls/hr 04/29/17 05:55 04/29/17 06:08 Normal Saline IV 04/29/17 06:55 999 mls/hr STAT ONE Administration Ondansetron HCl 4 mg 04/29/17 05:55 04/29/17 06:08 Zofran IVPUSH 04/29/17 05:56 4 mg ONETIME ONE Administration Departure - Departure Time of Disposition: 07:19 Disposition: Refer to Observation Condition: Good Clinical Impression: Abdominal pain Qualifiers: Abdominal location: epigastric Qualified Code(s): R10.13 - Epigastric pain - Discharge Information Referrals: PCP,None [Primary Care Provider] - Forms: ED Department Discharge - My Orders Last 24 Hours: My Active Orders 04/29/17 05:55 Sodium Chloride 0.9% [Saline Flush] 10 ml FLUSH ASDIRECTED PRN Sodium Chloride 0.9% [Saline Flush] 2.5 ml FLUSH ASDIRECTED PRN Saline Lock Insert [OM.PC] Stat 04/29/17 07:14 Patient Status [ADT] Stat Notify Provider Consults [RC] ASDIRECTED Consult to Physician [CONS] Stat - Assessment/Plan Last 24 Hours: My Active Orders 04/29/17 05:55 Sodium Chloride 0.9% [Saline Flush] 10 ml FLUSH ASDIRECTED PRN Sodium Chloride 0.9% [Saline Flush] 2.5 ml FLUSH ASDIRECTED PRN Saline Lock Insert [OM.PC] Stat 04/29/17 07:14 Patient Status [ADT] Stat Notify Provider Consults [RC] ASDIRECTED Consult to Physician [CONS] Stat
[2017-04-29 06:40] LABS: CHLORIDE,CL 106 mmol/L (98-110); SODIUM,NA 140 mmol/L (136-146)
[2017-04-29] MEDS ORDERED: Sodium Chloride 0.9% 1,000 ML IV SCH ×2 (07:30→08:15)
[2017-04-29] MEDS ORDERED: HYDROmorphone 1 MG/ML Syringe IVPUSH ONE (07:41)
--- NOTE | 2017-04-29 08:13 | PCM.HP ---
H&P History of Present Illness - General Date of Service: 04/29/17 Admit Problem/Dx: Admission Diagnosis/Problem Admission Diagnosis/Problem Abdominal pain Source of Information: Patient History Limitations: Reports: No Limitations - History of Present Illness Initial Comments - Free Text/Narative: This 41 year old male with pmh of gallstone pancreatitis and IBS presented to the ED today with 1 day worsening epigastric and RUQ pain with nausea and vomiting and the inability to keep anything down. He was recently discharged home on 04/25/2017. At this time he had extensive workup for gallstone pancreatitis, MRCP was completed. Dr Whipple was consulted and requested patient to see a GI specialist prior to removing his gallbladder due to eosinophilia. I had spoken with Dr. Lloyd who agreed to see that patient and he would arrange the referral to a surgeon. According to the family the nurse never called them for an appointment and when they did they said they needed a referral from PCP. He was discharge upon request, essentially saying I can have CL and have diarrhea at home. He was encouraged to follow with PCP to trend LFTs since they were not normal upon discharge. He denies any fevers or black or bloody BMS, the diarrhea has slowed but hasn't been able to tolerate much for a diet. Him and his family are requesting to consult with Dr Cabrera. He expresses immense frustration with this process and is asking how long he will need to stay in the hospital. In the ED, Leukocytosis noted, 14,110, K+ 3.4, AST 78, ALT 163 and Alk phos 373 , Bili 0.7 and lipase normal. These are all very similar to labs upon discharge. he was treated with IVFs, Zofran and Dilaudid in the ED. He will be admitted inpatient for abdominal pain and suspected gallstone pancreatitis. PCP, Dr Mera abdominal pain Pain Score (Numeric/FACES): 5 - Related Data Allergies/Adverse Reactions: Allergies Allergy/AdvReac Type Severity Reaction Status Date / Time diflunisal [From Dolobid] Allergy Cannot Verified 04/29/17 05:41 Remember Home Medications: Home Meds Hyoscyamine Sulfate [Hyoscyamine Sulfate] 1 tab PO ASDIRECTED PRN 04/23/17 [ History] Omeprazole [Omeprazole] 20 mg PO DAILY 04/23/17 [History] oxyCODONE HCl [Oxycodone HCl] 1 tab PO BID 04/29/17 [History] traMADol [Ultram] 1 tab PO Q6HR PRN 04/29/17 [History] Past Medical History HEENT History: Reports: Other (See Below) Other HEENT History: left ear stroke 2008, 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 Cardiovascular History: Reports: None. Denies: Blood Clots/VTE/DVT, High Cholesterol, Hypertension, CA Respiratory History: Reports: None. Denies: COPD, PE Gastrointestinal History: Reports: GERD, Irritable Bowel Syndrome, Other (See Below) Other Gastrointestinal History: Gallstones Genitourinary History: Reports: None. Denies: Chronic Renal Insuffiency Neurological History: Reports: None Psychiatric History: Reports: None Endocrine/Metabolic History: Reports: None. Denies: Diabetes, Type II Hematologic History: Reports: None Immunologic History: Reports: None Oncologic (Cancer) History: Reports: None Dermatologic History: Reports: None - Infectious Disease History Infectious Disease History: Reports: Chicken Pox Other Infectious Disease History: childhood - Past Surgical History Head Surgeries/Procedures: Reports: None HEENT Surgical History: Reports: Tonsillectomy GI Surgical History: Reports: None Social & Family History - Family History Family Medical History: Noncontributory - Tobacco Use Smoking Status *Q: Never Smoker Second Hand Smoke Exposure: No - Caffeine Use Caffeine Use: Reports: Soda - Recreational Drug Use Recreational Drug Use: No - Living Situation & Occupation Living situation: Reports: Occupation: Employed H&P Review of Systems - Review of Systems: Review Of Systems: See Below General: Reports: No Symptoms. Denies: Fever, Chills, Malaise, Weakness HEENT: Reports: No Symptoms. Denies: Headaches, Sinus Congestion, Sore Throat, Vertigo Pulmonary: Reports: No Symptoms. Denies: Shortness of Breath, Cough, Sputum Cardiovascular: Reports: No Symptoms. Denies: Chest Pain, Palpitations, Edema Gastrointestinal: Reports: Abdominal Pain, Anorexia, Diarrhea (but has improved since discharge), Distension, Nausea, Vomiting Musculoskeletal: Reports: No Symptoms. Denies: Neck Pain Psychiatric: Reports: Agitation Exam - Exam Exam: See Below - Vital Signs Vital Signs: Last Vital Signs Temp 97.9 F 04/29/17 05:43 Pulse 108 H 12/15/17 05:43 Resp 18 04/29/17 05:43 BP 127/83 04/29/17 05:43 Pulse Ox 98 04/29/17 05:43 Weight: 93.1 kg - Exam Quality Assessment: DVT Prophylaxis (SCDs) General: Alert, Oriented, Cooperative HEENT: Conjunctiva Clear, Mucosa Moist & [place], Nares Patent, Posterior Pharynx Clear Neck: Supple Lungs: Clear to Auscultation, Normal Respiratory Effort Cardiovascular: Regular Rate, Regular Rhythm, Normal S1, Normal S2 GI/Abdominal Exam: Normal Bowel Sounds (hypoactive), Soft, No Organomegaly, No Mass, Distended, Tender (RUQ and epigastric) Back Exam: Normal Inspection, Full Range of Motion, NT Extremities: Normal Inspection, Normal Range of Motion, Non-Tender, No Pedal Edema, Normal Capillary Refill Skin: Warm, Dry, Intact Neuro Extensive - Mental Status: Alert, Oriented x3, Normal Mood/Affect Psychiatric: Alert, Normal Affect, Agitated (at times expresses a lot of frustration and appears irritable and verbally expresses frustration. Clenching fists at time) - Patient Data Result Diagrams: 04/29/17 06:06 04/29/17 06:06 *Q Meaningful Use (ADM) - VTE *Q VTE Criteria *Q: - Stroke *Q Stroke Criteria *Q: - AMI *Q AMI Criteria *Q: - Problem List (1) Gallstone pancreatitis SNOMED Code(s): 27788060 ICD Code: K85.10 - BILIARY ACUTE PANCREATITIS WITHOUT NECROSIS OR INFECTION Status: Acute Current Visit: Yes (2) Abdominal pain SNOMED Code(s): 33190619 ICD Code: R10.9 - UNSPECIFIED ABDOMINAL PAIN Status: Acute Priority: Medium Current Visit: Yes Qualifiers: Abdominal location: epigastric Qualified Code(s): R10.13 - Epigastric pain (3) Abnormal liver function tests SNOMED Code(s): 502683914 ICD Code: R79.89 - OTHER SPECIFIED ABNORMAL FINDINGS OF BLOOD CHEMISTRY Status: Acute Priority: Medium Current Visit: No (4) Vomiting SNOMED Code(s): 947357788 ICD Code: R11.10 - VOMITING, UNSPECIFIED Status: Acute Priority: Medium Current Visit: No Qualifiers: Vomiting type: unspecified Vomiting Intractability: non-intractable Nausea presence: with nausea Qualified Code(s): R11.2 - Nausea with vomiting, unspecified (5) Diarrhea SNOMED Code(s): 37792548 ICD Code: R19.7 - DIARRHEA, UNSPECIFIED Status: Acute Priority: Medium Current Visit: No Qualifiers: Diarrhea type: unspecified type Qualified Code(s): R19.7 - Diarrhea, unspecified Problem List Initiated/Reviewed/Updated: Yes Orders Last 24hrs: Active Orders 24 hr Category Date Time Status Patient Status [ADT] Routine ADT 04/29/17 08:06 Ordered Antiembolic Devices [RC] PER UNIT ROUTINE Care 04/29/17 08:08 Ordered Intake and Output [RC] QSHIFT Care 04/29/17 08:07 Ordered May Shower [RC] ASDIRECTED Care 04/29/17 08:06 Ordered Oxygen Therapy [RC] PRN Care 04/29/17 08:06 Ordered Up ad Nicolle [RC] ASDIRECTED Care 04/29/17 08:06 Ordered VTE/DVT Education [RC] PER UNIT ROUTINE Care 04/29/17 08:06 Ordered Vital Signs [RC] Q4H Care 04/29/17 08:06 Ordered CBC WITH AUTO DIFF [HEME] AM Lab 04/30/17 05:11 Ordered CBC WITH AUTO DIFF [HEME] AM Lab 05/01/17 05:11 Ordered CBC WITH AUTO DIFF [HEME] AM Lab 05/02/17 05:11 Ordered CBC WITH AUTO DIFF [HEME] AM Lab 05/03/17 05:11 Ordered COMPREHENSIVE METABOLIC PN,CMP [CHEM] AM Lab 04/30/17 05:11 Ordered COMPREHENSIVE METABOLIC PN,CMP [CHEM] AM Lab 05/01/17 05:11 Ordered COMPREHENSIVE METABOLIC PN,CMP [CHEM] AM Lab 05/02/17 05:11 Ordered COMPREHENSIVE METABOLIC PN,CMP [CHEM] AM Lab 05/03/17 05:11 Ordered MAGNESIUM [CHEM] AM Lab 04/30/17 05:11 Ordered MAGNESIUM [CHEM] AM Lab 05/01/17 05:11 Ordered MAGNESIUM [CHEM] AM Lab 05/02/17 05:11 Ordered MAGNESIUM [CHEM] AM Lab 05/03/17 05:11 Ordered MAGNESIUM [CHEM] Routine Lab 04/29/17 08:11 Ordered HYDROmorphone [Dilaudid] Med 04/29/17 08:06 Ordered 1 mg IVPUSH Q2H PRN Ondansetron [Zofran] Med 04/29/17 08:06 Ordered 4 mg IVPUSH Q4H PRN Pantoprazole [ProTONIX IV] Med 04/29/17 08:15 Ordered 40 mg IVPUSH Q24H Potassium Chloride 40 meq Med 04/29/17 08:10 Ordered Sodium Chloride 0.9% [Normal Saline] 480 ml IV ONETIME Sodium Chloride 0.9% [Normal Saline] 1,000 ml Med 04/29/17 08:15 Ordered IV .BOLUS Sodium Chloride 0.9% [Normal Saline] 1,000 ml Med 04/29/17 08:15 Ordered IV ASDIRECTED Sequential Compression Device [OM.PC] Per Unit Routine Oth 04/29/17 08:07 Ordered Resuscitation Status Routine Resus Stat 04/29/17 08:06 Ordered Medication Orders Hydromorphone HCl (Dilaudid) 1 mg IVPUSH Q2H PRN PRN Reason: Pain (severe 7-10) Potassium Chloride 40 meq/ (Sodium Chloride) 500 mls @ 150 mls/hr IV ONETIME ONE Stop: 04/29/17 11:29 Sodium Chloride (Normal Saline) 1,000 mls @ 999 mls/hr IV .BOLUS FRANKY Sodium Chloride (Normal Saline) 1,000 mls @ 150 mls/hr IV ASDIRECTED FRANKY Ondansetron HCl (Zofran) 4 mg IVPUSH Q4H PRN PRN Reason: Nausea Pantoprazole Sodium (Protonix Iv) 40 mg IVPUSH Q24H FRANKY Sodium Chloride (Saline Flush) 10 ml FLUSH ASDIRECTED PRN PRN Reason: Keep Vein Open Last Admin: 04/29/17 07:27 Dose: 10 ml Sodium Chloride (Saline Flush) 2.5 ml FLUSH ASDIRECTED PRN PRN Reason: Keep Vein Open Last Admin: 04/29/17 07:26 Dose: 2.5 ml Assessment/Plan Comment:: This 41 year old male admitted with abdominal pain and suspected gallstone pancreatitis 1. Gallstone pancreatitis with elevated LFTs: Dr Cabrera consulted per family request. She will see patient this morning. Recommended abdominal US now. Will treat with bowel rest, IVFs, pain medication and anti-emetics PRN. 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 Family and patient appear very frustrated with everything. Reiterated he will need to remain on bowel rest and with IVFs to let elevated LFTs normalized which may take a couple days. Lipase was elevated on first admission 440s today it is 25. Continue to monitor and follow recommendations of Dr Cabrera. 2. Diarrhea: Has improved some, but hasn't eaten much over the last couple days. Does need follow up with GI specialist. Noted to have continued elevation in eosinophils. VTE prophylaxis: SCDs Dispo: 2-4 days pending improvement.
[2017-04-29] MEDS ORDERED: Potassium Chloride 40 MEQ in Sodium Chloride 0.9% 480 ML IV ONE (08:30)
[2017-04-29] MEDS: HYDROmorphone 1 MG/ML Syringe IVPUSH PRN ×2 (08:55→10:48)
[2017-04-29] MEDS: Pantoprazole 40 MG Vial IVPUSH SCH (09:00)
[2017-04-29] MEDS ORDERED: Temazepam 15 MG Cap PO PRN (10:10)
[2017-04-29] MEDS ORDERED: HYDROmorphone/Normal Saline 6 MG/30 ML PCA Vial IV PRN (11:04)
[2017-04-29] MEDS: Piperacillin/Tazobactam 3.375 GM in Sodium Chloride 0.9% 50 ML IV SCH ×2 (11:23→18:03)
--- NOTE | 2017-04-29 13:39 | US ---
EXAM DATE: 04/29/17 PATIENT'S AGE: 41 Patient: SARA BRADSHAW Facility: [place], [place] Site . Site : [id number] Study: US Abdomen [id number]/[id number] 9:48:20 AM Ordering Physician: Manan Bazzi Final Report: HISTORY: Elevated LFTs. TECHNIQUE: Limited abdominal ultrasound. COMPARISON: 04/23/2017. FINDINGS: Pancreas is poorly seen secondary to bowel gas. The liver size and echogenicity are grossly normal. There is no liver mass. No intrahepatic biliary ductal dilatation. The extrahepatic bile duct measures 3 mm which is normal. The gallbladder wall is prominent though the gallbladder is contracted which exaggerates wall thickness. The small gallstone seen in the neck region of the gallbladder on the prior CT is not seen by ultrasound. Possible trace fluid adjacent to the gallbladder fundus. No abnormality involving the visualized right kidney. IMPRESSION: 1. Gallbladder wall is prominent though this may relate entirely to its contracted nature. The small stone seen in the neck region of the gallbladder on the CT is not seen by ultrasound either due to its location or that it is no longer present. 2. No biliary ductal dilatation. Dictated by Viraj Up MD @ 04/29/2017 9:56:26 AM Dictated by: Viraj Up MD @ 04/29/2017 09:56:30 (Electronic Signature) Report Signed by Proxy. [facility]
[2017-04-29] MEDS: Sodium Chloride 0.9% 1,000 ML IV SCH ×2 (14:12→21:01)
--- NOTE | 2017-04-29 16:09 | PCM.CONS ---
H&P History of Present Illness - General Date of Service: 04/29/17 Admit Problem/Dx: Admission Diagnosis/Problem Admission Diagnosis/Problem Abdominal pain Source of Information: Patient History Limitations: Reports: No Limitations - History of Present Illness Initial Comments - Free Text/Narative: patient is a 41 year old male who presents to the ED with RUQ pain, transaminitis, and a recent history of eosinophilia, gallstone pancreatitis, and transaminitis. He developed abdominal discomfort and diarrhea 2 weeks ago. He was admitted to the hospital earlier this week. He had elevated pancreatic enzymes and transaminitis. A CT on admission revealed cholelithiasis with no evidence of cholecystitis and non-specific colonic findings suggesting enteritis. He was incidentally found to have an eosinophilia of 35%. He has had a colonoscopy and EGD in the past that revealed gastritis. He underwent a RUQ US that was normal. An MRCP showed no evidence of stones in the CBD or gallbladder. He did have a small amount of rajesh-cholecystitic fluid that suggested possible cholecystitis. He was treated conservatively with fluids and bowel rest. His LFTs improved and lipase and amylase came down. He was discharged home with instructions for close follow up. He was to see his clinic business manager prior to having his gallbladder removed. The thought was that he could have a GI source/inflammatory bowel disorder causing his symptoms. The clinic business manager believed that he needed his GB out before any scopes to look at his GI tract. The patient was pain free on discharge however yesterday he developed sharp epigastric pain that radiated to his RUQ. He presented to the ED this am and his LFTs were elevated again, however his amylase and lipase were normal. He was admitted to the hospitalist service. A repeat US was normal. He denies fevers and chills but has had nausea and vomiting. He denies bloody emesis, hematochezia or melena. He feels his diarrhea is slowing down. abdominal pain Pain Score (Numeric/FACES): 5 - Related Data Allergies/Adverse Reactions: Allergies Allergy/AdvReac Type Severity Reaction Status Date / Time diflunisal [From Dolobid] Allergy Cannot Verified 04/29/17 05:41 Remember Home Medications: Home Meds Hyoscyamine Sulfate [Hyoscyamine Sulfate] 1 tab PO ASDIRECTED PRN 04/23/17 [ History] Omeprazole [Omeprazole] 20 mg PO DAILY 04/23/17 [History] oxyCODONE HCl [Oxycodone HCl] 1 tab PO BID 04/29/17 [History] traMADol [Ultram] 1 tab PO Q6HR PRN 04/29/17 [History] Past Medical History - Past Health History Medical/Surgical History: Denies Medical/Surgical History HEENT History: Reports: Other (See Below) Other HEENT History: left ear stroke 2008, 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 Cardiovascular History: Reports: None. Denies: Blood Clots/VTE/DVT, High Cholesterol, Hypertension, ID Respiratory History: Reports: None. Denies: COPD, PE Gastrointestinal History: Reports: GERD, Irritable Bowel Syndrome, Other (See Below) Other Gastrointestinal History: Gallstones Genitourinary History: Reports: None. Denies: Chronic Renal Insuffiency Neurological History: Reports: None Psychiatric History: Reports: None Endocrine/Metabolic History: Reports: None. Denies: Diabetes, Type II Hematologic History: Reports: None Immunologic History: Reports: None Oncologic (Cancer) History: Reports: None Dermatologic History: Reports: None - Infectious Disease History Infectious Disease History: Reports: Chicken Pox Other Infectious Disease History: childhood - Past Surgical History Head Surgeries/Procedures: Reports: None HEENT Surgical History: Reports: Tonsillectomy GI Surgical History: Reports: None Social & Family History - Family History Family Medical History: Noncontributory - Tobacco Use Smoking Status *Q: Never Smoker Second Hand Smoke Exposure: No - Caffeine Use Caffeine Use: Reports: Soda - Recreational Drug Use Recreational Drug Use: No - Living Situation & Occupation Living situation: Reports: Occupation: Employed H&P Review of Systems - Review of Systems: Review Of Systems: ROS reveals no pertinent complaints other than HPI. Exam - Exam Exam: See Below - Vital Signs Vital Signs: Last Vital Signs Temp 36.4 C 04/29/17 12:00 Pulse 84 04/29/17 12:00 Resp 18 04/29/17 12:00 BP 115/64 04/29/17 12:00 Pulse Ox 94 L 04/29/17 12:00 Weight: 93.1 kg - Exam General: Alert, Oriented HEENT: Conjunctiva Clear, Mucosa Moist & [place], Nares Patent, Posterior Pharynx Clear, Pupils Equal Neck: Supple, Trachea Midline Lungs: Clear to Auscultation, Normal Respiratory Effort Cardiovascular: Regular Rate, Regular Rhythm GI/Abdominal Exam: Normal Bowel Sounds, Soft, Non-Tender, No Distention, No Mass , Other (No macias's sign ). No: Guarding, Rigid, Rebound Back Exam: Normal Inspection Extremities: Normal Inspection, Normal Range of Motion - Patient Data Result Diagrams: 04/29/17 06:06 04/29/17 06:06 Consult PN Assessment/Plan Procedures: Procedures ASSAY OF TROPONIN QUANT (05/26/15) CHEST X-RAY 1 VIEW FRONTAL (05/26/15) COLONOSCOPY AND BIOPSY (01/23/14) COMPLETE CBC W/AUTO DIFF WBC (05/26/15) COMPREHEN METABOLIC PANEL (04/26/17) CONTRAST X-RAY EXAM OF COLON (12/12/13) CT HEAD/BRAIN W/O DYE (05/26/15) ECHO EXAM OF ABDOMEN (04/22/17) EGD BIOPSY SINGLE/MULTIPLE (01/23/14) EMERGENCY DEPT VISIT (05/26/15) HYDRATION IV INFUSION INIT (05/26/15) ROUTINE VENIPUNCTURE (04/26/17) SPECIAL STAINS GROUP 1 (01/23/14) TISSUE EXAM BY PATHOLOGIST (01/23/14) URINALYSIS AUTO W/SCOPE (05/26/15) (1) Eosinophilia SNOMED Code(s): 902751325 Code(s): D72.1 - EOSINOPHILIA Current Visit: Yes (2) Abdominal pain SNOMED Code(s): 71749146 Code(s): R10.9 - UNSPECIFIED ABDOMINAL PAIN Priority: Medium Current Visit: Yes Qualifiers: Abdominal location: epigastric Qualified Code(s): R10.13 - Epigastric pain (3) Gallstone pancreatitis SNOMED Code(s): 24944088 Code(s): K85.10 - BILIARY ACUTE PANCREATITIS WITHOUT NECROSIS OR INFECTION Current Visit: Yes (4) Abnormal liver function tests SNOMED Code(s): 026295130 Code(s): R79.89 - OTHER SPECIFIED ABNORMAL FINDINGS OF BLOOD CHEMISTRY Priority: Medium Current Visit: No (5) Diarrhea SNOMED Code(s): 25828942 Code(s): R19.7 - DIARRHEA, UNSPECIFIED Priority: Medium Current Visit: No Qualifiers: Diarrhea type: unspecified type Qualified Code(s): R19.7 - Diarrhea, unspecified Problem List Initiated/Reviewed/Updated: Yes My Orders Last 24 Hours: My Active Orders 04/29/17 15:47 CBC WITH AUTO DIFF [HEME] Routine COMPREHENSIVE METABOLIC PN,CMP [CHEM] Routine Plan: I had a long discussion with the patient and his family. I explained that the patient has no evidence of cholelithiasis other than from his original CT. He may have already passed all his stones or this may have been a false positive finding. His labs certainly suggest that he had a gallstone pancreatitis initially. His elevated eosinophil count makes me concerned that he may have another process going on that is the cause of his abdominal pain, nausea, and ongoing diarrhea. His LFT elevation may be due to dehydration and recent transaminitis. His bilirubin and pancreatic enzymes are all within normal limits. My differential for his pain includes the following: #1: Gallstone pancreatitis: His pain, nausea, vomiting, and diarrhea may be secondary to residual inflammation from his recent pancreatitis. With bowel rest and some IVF his labs should improve. In patients who have had mild pancreatitis, cholecystectomy can usually be performed safely within seven days after recovery and in the same index hospitalization. I ordered a recheck of his LFTs this afternoon. If they have improved I will perform a laparoscopic possible open cholecystectomy in the morning. I explained to the patient that this MAY NOT RESOLVE HIS SYMPTOMS especially if they are due to residual inflammation. However this can reduce his risk of forming stones again and having recurrent GP. We discussed the procedure and expected perioperative course. We discussed the risks including bleeding, infection, or damage to surrounding structures. If I cannot perform it safely laparoscopically I will convert to open. He verbalized understanding and wishes to proceed. If his afternoon LFTs continue to risk or have not improved I will transfer him to [place] for further workup. 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 If this is the cause of his enteritis, taking out his gallbladder will not improve his symptoms and may come with a higher risk of complications. He would need to undergo further workup with the gastroenterologists in [place] and possibly be transferred during this admission. The patient understands this but is willing to undergo a cholecystectomy. The patient should remain NPO, on IVF, and be treated with IV pain meds. I will start his on zosyn today. Will follow up on labs and proceed accordingly.
[2017-04-29 16:23] LABS: CHLORIDE,CL 110 mmol/L (98-110); SODIUM,NA 142 mmol/L (136-146)
[2017-04-29] MEDS: Ondansetron 4 MG/2 ML SDV IVPUSH PRN (16:24)
[2017-04-30] MEDS: Piperacillin/Tazobactam 3.375 GM in Sodium Chloride 0.9% 50 ML IV SCH ×3 (02:18→18:18)
[2017-04-30] MEDS: Sodium Chloride 0.9% 1,000 ML IV SCH ×2 (04:10→14:54)
[2017-04-30 06:29] LABS: CHLORIDE,CL 110 mmol/L (98-110); SODIUM,NA 140 mmol/L (136-146)
[2017-04-30] MEDS ORDERED: Ondansetron 4 MG/2 ML SDV ONE (08:06)
[2017-04-30] MEDS ORDERED: Propofol 200 MG/20 ML SDV ONE (08:06)
[2017-04-30] MEDS ORDERED: Succinylcholine/Normal Saline 200 MG/10 ML Syringe ONE (08:06)
[2017-04-30] MEDS ORDERED: fentaNYL 250 MCG/5 ML SDV ONE (08:06)
[2017-04-30] MEDS ORDERED: Midazolam 1 MG/ML 2 ML SDV ONE (08:06)
[2017-04-30] MEDS ORDERED: Lidocaine 2% 5 ML SDV ONE (08:06)
[2017-04-30] MEDS ORDERED: Rocuronium 10 MG/ML 10 ML Syringe ONE (08:06)
[2017-04-30] MEDS: Pantoprazole 40 MG Vial IVPUSH SCH (08:13)
--- NOTE | 2017-04-30 08:17 | PCM.PREANE ---
Preanesthetic Assessment - Anesthesia/Transfusion/Family Hx Anesthesia History: Prior Anesthesia Without Reaction Transfusion History: No Prior Transfusion(s) - Review of Systems General: No Symptoms Pulmonary: No Symptoms Cardiovascular: No Symptoms Gastrointestinal: No Symptoms Neurological: No Symptoms Other: Reports: None - Physical Assessment O2 Sat by Pulse Oximetry: 95 Respiratory Rate: 18 Vital Signs: Last Vital Signs Temp 97.7 F 04/30/17 03:55 Pulse 72 04/30/17 03:55 Resp 18 04/30/17 03:55 BP 109/60 04/30/17 03:55 Pulse Ox 95 04/30/17 03:55 Height: 5 ft 11 in Weight: 93.1 kg ASA Class: 2E Mental Status: Alert & Oriented x3 Airway Class: Mallampati = 2 Dentition: Reports: Normal Dentition Thyro-Mental Finger Breadths: 3 Mouth Opening Finger Breadths: 3 ROM/Head Extension: Full Lungs: Clear to Auscultation, Normal Respiratory Effort Cardiovascular: Regular Rate, Regular Rhythm - Lab Values: Laboratory Last Values WBC 11.09 K/uL (4.0-11.0) H 04/30/17 05:50 RBC 4.69 M/uL (4.50-5.90) 04/30/17 05:50 Hgb 13.7 g/dL (13.0-17.0) 04/30/17 05:50 Hct 40.1 % (38.0-50.0) 04/30/17 05:50 MCV 85.5 fL (80.0-98.0) 04/30/17 05:50 MCH 29.2 pg (27.0-32.0) 04/30/17 05:50 MCHC 34.2 g/dL (31.0-37.0) 04/30/17 05:50 RDW Std Deviation 40.5 fl (28.0-62.0) 04/30/17 05:50 RDW Coeff of Ethan 13 % (11.0-15.0) 04/30/17 05:50 Plt Count 165 K/uL (150-400) 04/30/17 05:50 MPV 10.90 fL (7.40-12.00) 04/30/17 05:50 Add Manual Diff YES 04/30/17 05:50 Neutrophils % (Manual) 52 % (48.0-80.0) 04/30/17 05:50 Band Neutrophils % 1 % 04/29/17 06:06 Lymphocytes % (Manual) 23 % (16.0-40.0) 04/30/17 05:50 Monocytes % (Manual) 2 % (0.0-15.0) 04/30/17 05:50 Eosinophils % (Manual) 23 % (0.0-7.0) H 04/30/17 05:50 Nucleated RBC % 0.0 /100WBC 04/30/17 05:50 Absolute Seg Neuts 5.8 (1.4-5.7) H 04/30/17 05:50 Band Neutrophils # 0.1 04/29/17 06:06 Lymphocytes # (Manual) 2.6 (0.6-2.4) H 04/30/17 05:50 Monocytes # (Manual) 0.2 (0.0-0.8) 04/30/17 05:50 Eosinophils # (Manual) 2.6 (0.0-0.7) H 04/30/17 05:50 Nucleated RBCs # 0 K/uL 04/30/17 05:50 Lactate 0.8 mmol/L (0.20-2.00) 04/29/17 06:06 Sodium 140 mmol/L (136-146) 04/30/17 05:50 Potassium 3.8 mmol/L (3.5-5.1) 04/30/17 05:50 Chloride 110 mmol/L (98-110) 04/30/17 05:50 Carbon Dioxide 19 mmol/L (21-31) L 04/30/17 05:50 BUN 7 mg/dL (6.0-23.0) 04/30/17 05:50 Creatinine 0.8 mg/dL (0.6-1.5) 04/30/17 05:50 Est Cr Clr Drug Dosing 132.04 mL/min 04/30/17 05:50 Estimated GFR (MDRD) > 60.0 ml/min 04/30/17 05:50 Glucose 67 mg/dL (60-110) 04/30/17 05:50 Calcium 8.1 mg/dL (8.8-10.8) L 04/30/17 05:50 Magnesium 1.4 mEq/L (1.5-2.3) L 04/30/17 05:50 Total Bilirubin 0.7 mg/dL (0.1-1.5) 04/30/17 05:50 AST 41 IU/L (5-40) H 04/30/17 05:50 ALT 105 IU/L (8-54) H 04/30/17 05:50 Alkaline Phosphatase 259 (40-150) H 04/30/17 05:50 Total Protein 5.2 g/dL (6.0-8.0) L 04/30/17 05:50 Albumin 3.2 g/dL (3.5-5.0) L 04/30/17 05:50 Globulin 2.0 g/dL (2.0-3.5) 04/30/17 05:50 Albumin/Globulin Ratio 1.6 (1.3-2.8) 04/30/17 05:50 Amylase 45 U/L (10-90) 04/29/17 06:06 Lipase 25 U/L (7-80) 04/29/17 06:06 - Allergies Allergies/Adverse Reactions: Allergies Allergy/AdvReac Type Severity Reaction Status Date / Time diflunisal [From Dolobid] Allergy Cannot Verified 04/29/17 05:41 Remember - Acknowledgements Anesthesia Type Planned: General Anesthesia (with RSI) Pt an Appropriate Candidate for the Planned Anesthesia: Yes Alternatives and Risks of Anesthesia Discussed w Pt/Guardian: Yes Pt/Guardian Understands and Agrees with Anesthesia Plan: Yes PreAnesthesia Questionnaire - Past Health History Medical/Surgical History: Denies Medical/Surgical History HEENT History: Reports: Other (See Below) Other HEENT History: left ear stroke 2008, 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 Cardiovascular History: Reports: None. Denies: Blood Clots/VTE/DVT, High Cholesterol, Hypertension, [place] Respiratory History: Reports: None. Denies: COPD, PE Gastrointestinal History: Reports: GERD, Irritable Bowel Syndrome, Other (See Below) Other Gastrointestinal History: Gallstones Genitourinary History: Reports: None. Denies: Chronic Renal Insuffiency Musculoskeletal History: Reports: None Neurological History: Reports: None Psychiatric History: Reports: None Endocrine/Metabolic History: Reports: None. Denies: Diabetes, Type II Hematologic History: Reports: None Immunologic History: Reports: None Oncologic (Cancer) History: Reports: None Dermatologic History: Reports: None - Infectious Disease History Infectious Disease History: Reports: Chicken Pox Other Infectious Disease History: childhood - Past Surgical History Head Surgeries/Procedures: Reports: None HEENT Surgical History: Reports: Tonsillectomy GI Surgical History: Reports: None - SUBSTANCE USE Smoking Status *Q: Never Smoker Second Hand Smoke Exposure: No Recreational Drug Use History: No - HOME MEDS Home Medications: Home Meds Hyoscyamine Sulfate [Hyoscyamine Sulfate] 1 tab PO ASDIRECTED PRN 04/23/17 [ History] Omeprazole [Omeprazole] 20 mg PO DAILY 04/23/17 [History] oxyCODONE HCl [Oxycodone HCl] 1 tab PO BID 04/29/17 [History] traMADol [Ultram] 1 tab PO Q6HR PRN 04/29/17 [History] - CURRENT (IN HOUSE) MEDS Current Meds: Current Medications Hydromorphone HCl (Dilaudid Investigations Consultant 6 Mg In Ns 30 Ml) 6 mg IV ASDIRECTED PRN; Protocol PRN Reason: Pain Last Admin: 04/29/17 14:42 Dose: 6 mg Sodium Chloride (Normal Saline) 1,000 mls @ 150 mls/hr IV ASDIRECTED FRANKY Last Admin: 04/30/17 04:10 Dose: 150 mls/hr Piperacillin Sod/Tazobactam (Sod 3.375 gm/ Sodium Chloride) 50 mls @ 100 mls/ hr IV Q8H [facility] Last Admin: 04/30/17 02:18 Dose: 100 mls/hr Ondansetron HCl (Zofran) 4 mg IVPUSH Q4H PRN PRN Reason: Nausea Last Admin: 04/29/17 16:24 Dose: 4 mg Pantoprazole Sodium (Protonix Iv) 40 mg IVPUSH Q24H [facility] Last Admin: 04/30/17 08:13 Dose: 40 mg Sodium Chloride (Saline Flush) 10 ml FLUSH ASDIRECTED PRN PRN Reason: Keep Vein Open Last Admin: 04/29/17 07:27 Dose: 10 ml Sodium Chloride (Saline Flush) 2.5 ml FLUSH ASDIRECTED PRN PRN Reason: Keep Vein Open Last Admin: 04/29/17 07:26 Dose: 2.5 ml Temazepam (Restoril) 15 mg PO BEDTIME PRN PRN Reason: Insomnia Last Admin: 04/29/17 21:00 Dose: 15 mg Discontinued Medications Fentanyl (Sublimaze) Confirm Administered Dose 250 mcg .ROUTE .STK-MED ONE Stop: 04/30/17 08:07 Hydromorphone HCl (Dilaudid) 1 mg IVPUSH ONETIME ONE Stop: 04/29/17 05:56 Last Admin: 04/29/17 06:08 Dose: 1 mg Hydromorphone HCl (Dilaudid) 1 mg IVPUSH ONETIME ONE Stop: 04/29/17 07:42 Last Admin: 04/29/17 07:45 Dose: 1 mg Hydromorphone HCl (Dilaudid) 1 mg IVPUSH Q2H PRN PRN Reason: Pain (severe 7-10) Last Admin: 04/29/17 10:48 Dose: 1 mg Sodium Chloride (Normal Saline) 1,000 mls @ 999 mls/hr IV STAT ONE Stop: 04/29/17 06:55 Last Admin: 04/29/17 06:08 Dose: 999 mls/hr Sodium Chloride (Normal Saline) 1,000 mls @ 150 mls/hr IV ASDIRECTED [facility] Last Admin: 04/29/17 07:26 Dose: 150 mls/hr Potassium Chloride 40 meq/ (Sodium Chloride) 500 mls @ 125 mls/hr IV ONETIME ONE Stop: 04/29/17 12:29 Last Admin: 04/29/17 09:55 Dose: 125 mls/hr Sodium Chloride (Normal Saline) 1,000 mls @ 999 mls/hr IV .BOLUS [facility] Last Admin: 04/29/17 08:45 Dose: 999 mls/hr Lidocaine (Xylocaine-Mpf 2%) Confirm Administered Dose 5 ml .ROUTE .STK-MED ONE Stop: 04/30/17 08:07 Midazolam HCl (Versed 1 Mg/Ml) Confirm Administered Dose 2 mg .ROUTE .STK-MED ONE Stop: 04/30/17 08:07 Ondansetron HCl (Zofran) 4 mg IVPUSH ONETIME ONE Stop: 04/29/17 05:56 Last Admin: 04/29/17 06:08 Dose: 4 mg Ondansetron HCl (Zofran) Confirm Administered Dose 4 mg .ROUTE .STK-MED ONE Stop: 04/30/17 08:07 Propofol (Diprivan 20 Ml) Confirm Administered Dose 200 mg .ROUTE .STK-MED ONE Stop: 04/30/17 08:07 Rocuronium Jeddo (Zemuron) Confirm Administered Dose 100 mg .ROUTE .STK-MED ONE Stop: 04/30/17 08:07 Succinylcholine Chloride (Succinylcholine In Ns Pf) Confirm Administered Dose 200 mg .ROUTE .STK-MED ONE Stop: 04/30/17 08:07
[2017-04-30] MEDS ORDERED: Bupivacaine 0.5% 30 ML SDV ONE (08:50)
[2017-04-30] MEDS ORDERED: ePHEDrine 50 MG/ML SDV ONE (09:19)
[2017-04-30] MEDS ORDERED: Phenylephrine/Normal Saline 100 MCG/ML 10 ML Syringe ONE (09:21)
[2017-04-30] MEDS ORDERED: Phenylephrine 1% 10 MG/ML SDV ONE (09:44)
[2017-04-30] MEDS ORDERED: Bupivacaine 0.5% 10 ML SDV ONE (10:02)
[2017-04-30] MEDS ORDERED: fentaNYL 100 MCG/2 ML SDV ONE (10:30)
[2017-04-30] MEDS ORDERED: HYDROmorphone 2 MG/ML Syringe ONE (10:50)
[2017-04-30] MEDS ORDERED: fentaNYL 100 MCG/2 ML SDV IVPUSH PRN (10:55)
[2017-04-30] MEDS ORDERED: Cyclobenzaprine 10 MG Tab PO PRN (11:14)
--- NOTE | 2017-04-30 11:17 | PCM.OPNOTE ---
- General Post-Op/Procedure Note Date of Surgery/Procedure: 04/30/17 Operative Procedure(s): Laparoscopic cholecystectomy Findings: Mild-moderately inflamed gallbladder. Pre Op Diagnosis: Gallstone pancreatitis Post-Op Diagnosis: chronic cholecystitis Anesthesia Technique: General ET Tube Primary Surgeon: Estefany Cabrera Fluid Replacement, Intraop: 1,800 Output, Urine Amount: 500 EBL in mLs: 20 Condition: Stable Free Text/Narrative:: Intake & Output 04/29/17 04/30/17 04/30/17 22:59 06:59 14:59 Intake Total 320 1703 Output Total 530 800 500 Balance -210 903 -500
--- NOTE | 2017-04-30 11:25 | PCM.SN ---
- Free Text/Narrative Note: Patient underwent an un-complicated laparoscopic cholecystectomy this morning. His gallbladder was mild-moderately inflamed suggesting chronic cholecystitis. His LFTs have been decreasing since yesterday. I would expect them to bump slightly after this surgery. My post operative plan includes: Neuro: He can stay on a dilaudid STAINED GLASS INSTALLER immediately post op, however I wrote for po percocet 2 tab q 4 hr prn pain and increased the lockout interval on the STAINED GLASS INSTALLER to 10 min. Once his pain is controlled on po medication I would discontinue the STAINED GLASS INSTALLER. I wrote for flexeril 10mg TID prn for muscle spasms. Cardiovascular/Pulmonary: Stable. Would encourage IS use and have him walk out of bed this evening if possible. GI: Clear liquids ok for today. Will advance diet to regular in am if tolerating. Again, I expect his LFTs to be slightly increased tomorrow as a result of the surgery. Renal: UOP adequate. BUN/Cr within normal limits. Patient had a mcdonough in the OR so may have some mild dysuria post-op. Continue IVF post op. ID: His WBC was improving while on zosyn. I would continue the antibiotic for 24 hours post operatively then discontinue. I expect his WBC to be slightly higher tomorrow given the stress of the surgery. Heme: Blood loss was minimal during the case. Will follow up hgb/hct in am. Eosinophil count is decreasing. Will continue to monitor. Px: SCDs. Dispo: Expect patient to be in house until tuesday if labs improve, vitals are stable, pain controlled, and tolerates po intake.
--- NOTE | 2017-04-30 11:53 | PCM.POSTAN ---
POST ANESTHESIA ASSESSMENT - MENTAL STATUS Mental Status: Alert, Oriented - RESPIRATORY Respiratory Status: Respiratory Rate WNL, Airway Patent, O2 Saturation Stable - CARDIOVASCULAR CV Status: Pulse Rate WNL, Blood Pressure Stable - GASTROINTESTINAL GI Status: No Symptoms - POST OP HYDRATION Hydration Status: Adequate & Stable
--- NOTE | 2017-04-30 12:20 | PCM.SN ---
- Free Text/Narrative Note: Patient has had a colecystectomy today. I have talked with Dr. Cabrera and she will taking over as primary physician.
[2017-04-30] MEDS ORDERED: Magnesium Sulfate/Water 2 GM in Premix Bag 1 BAG IV ONE (12:29)
[2017-04-30] MEDS: Ondansetron 4 MG/2 ML SDV IVPUSH PRN ×2 (13:47→18:18)
[2017-04-30] MEDS ORDERED: Phenazopyridine 200 MG Tab PO PRN (17:43)
[2017-04-30] MEDS ORDERED: Benzocaine/Cetylpyridinium/Menthol Lozenge MUCMEM PRN (17:46)
[2017-04-30] MEDS ORDERED: Phenol 1.4% Oral Spray 177 ML Bottle MUCMEM PRN (17:48)
[2017-04-30] MEDS ORDERED: Metoclopramide 5 MG Tab PO PRN (17:49)
[2017-04-30] MEDS ORDERED: Scopolamine 1.5 MG Transdermal Patch TRDERM PRN (17:49)
[2017-04-30] MEDS ORDERED: Promethazine 25 MG/ML SDV IM PRN (17:49)
--- NOTE | 2017-04-30 17:55 | OR ---
SURGEON: HIRAM BUCHANAN MD DATE OF PROCEDURE: 04/29/2017 PREOPERATIVE DIAGNOSIS: Gallstone pancreatitis. POSTOPERATIVE DIAGNOSIS: Gallstone pancreatitis, chronic cholecystitis. PROCEDURE PERFORMED: Laparoscopic cholecystectomy. ANESTHESIA: General endotracheal anesthesia. ANESTHESIOLOGIST: Filiberto Wilder CRNA. FLUIDS: 1800 mL of crystalloid. ESTIMATED BLOOD LOSS: 20 mL. URINE OUTPUT: 500 mL. FINDINGS: Mild to moderately inflamed gallbladder. COMPLICATIONS: None. INDICATIONS: The patient is a 41-year-old male, who presented earlier this week with gallstone pancreatitis. His LFTs and pancreatic enzyme labs improved and he was discharged home. One day after hospitalization, the patient developed nausea, vomiting, and epigastric pain that radiated to his right upper quadrant. He presented to the emergency room. Upon admission, his LFTs were elevated again, however, his lipase and amylase were within normal limits. His white count was elevated at 14,000. He was admitted to the hospitalist service and given IV fluids, IV antibiotics, and made n.p.o. His LFTs and white count have improved. The decision was made to remove his gallbladder to prevent any further episodes of gallstone pancreatitis. The patient, his family and I had a very long conversation describing the pathophysiology of biliary disease and the cholecystectomy procedures. I will attempt this laparoscopically, but should I be unable to perform it safely I will convert to open. The patient and I discussed the expected perioperative course, and risks including bleeding, infection, or damage to surrounding structures. The patient verbalized understanding and wishes to proceed. PROCEDURE IN DETAIL: The patient was brought into the operating room and placed on the OR table in supine position. A time-out was completed verifying the patient's name, age, date of , allergies, and procedure to be performed. General endotracheal anesthesia was induced. The left arm was tucked to the patient's side and a Meek catheter was placed. The abdomen was prepped and draped in usual standard fashion. The infraumbilical fold was anesthetized with 0.5% Marcaine plain. 11 blade was used to make an incision along this fold. Cautery was used to dissect down into the subcutaneous fat. S retractors and Army-Saranap retractors were used to bluntly dissect down to the level of the fascia. The fascia was grasped and elevated using China's. Garduno scissors were used to cut through the fascia. The patient's abdominal muscles were thick making it difficult to reach the level of the peritoneum. After blunt dissection, I was able to palpate the peritoneum and grasped this with a Elizabeth. It was sharply incised using a Metzenbaum scissors. A 12 mm Savita trocar was then inserted in the abdomen and the abdomen insufflated. A 5 mm 30 degree scope was inserted in the abdomen and I inspected the area underneath my initial trocar incision. No damage to surrounding structures was noted. The patient was placed into reverse Trendelenburg position and airplaned slightly to the left. This allowed the adequate working space in order to be able to place my 5 mm trocars. A 5 mm trocars were placed under direct visualization in the following locations, 1 in the epigastric area, 1 in the right flank, and 1 along the right subcostal margin along the midclavicular line. The gallbladder was adhered to the surrounding omentum. These attachments were taken down using a [place] dissector and hook cautery. Once the adhesions were removed, I was able to grasp the gallbladder with an atraumatic grasper through the right flank port and lift it above the dome of the liver. The remainder of the omental attachments were then taken down using blunt dissection and hook cautery. The infundibulum was grasped, retracted to the right and inferiorly. This allowed exposure of the lower part of the gallbladder. A previous MRCP had indicated that the patient had a long cystic duct that coursed along the common bile duct. Because of this, I started my dissection along the peritoneal attachments to the midbody of the gallbladder. I then carried this dissection down towards the infundibulum. Meticulous dissection was undertaken around the infundibulum until I was able to identify the cystic duct and artery. The node of Calot was also discovered verifying my anatomy. Once my critical view was achieved, a photograph was taken. I then doubly clipped and ligated my the cystic duct and artery. The gallbladder was then removed from the gallbladder fossa using hook cautery. Once the gallbladder was free of its attachments, it was placed in an EndoCatch bag and removed through the infraumbilical port site. The trocar was then replaced and I inspected my operative field. The field appeared hemostatic. The clips were in good place with no evidence of bile leakage. I irrigated the abdomen with 1 L of normal saline until it ran clear. The trocars were then removed under direct visualization and the abdomen allowed to desufflate. The fascia at the umbilical port site was closed with interrupted 0 Vicryl sutures. The incision was then closed with interrupted 3-0 Vicryl stitches in the subcutaneous fat layer and a running 4-0 Monocryl subcuticular stitch. The 5 mm trocar sites were closed with interrupted 4-0 Monocryl sutures. Steri-Strips and sterile dressings were applied. The patient was extubated and his Meek catheter was removed. He was taken to the PACU in stable condition. FATOU RICH /[id number] MTDLoc
--- NOTE | 2017-04-30 17:59 | PCM.SURGPN ---
- General Info Date of Service: 04/30/17 Date of Surgery/Procedure: 04/30/17 POD#: 0 - Review of Systems General: Reports: No Symptoms HEENT: Reports: Sore Throat Pulmonary: Reports: No Symptoms Cardiovascular: Reports: No Symptoms Gastrointestinal: Reports: Abdominal Pain (around umbilical incision ), Decreased Appetite Genitourinary: Reports: Dysuria Musculoskeletal: Reports: No Symptoms Skin: Reports: No Symptoms Neurological: Reports: No Symptoms - Patient Data Vitals - Most Recent: Last Vital Signs Temp 36.2 C 04/30/17 13:45 Pulse 82 04/30/17 13:45 Resp 16 04/30/17 13:45 BP 109/55 L 04/30/17 13:45 Pulse Ox 97 04/30/17 13:45 Weight - Most Recent: 93.1 kg I&O - Last 24 Hours: Intake & Output 04/30/17 04/30/17 04/30/17 06:59 14:59 22:59 Intake Total 1703 3750 1468 Output Total 800 1000 1310 Balance 903 2750 158 Lab Results Last 24 Hrs: Laboratory Results - last 24 hr 04/30/17 04/30/17 Range/Units 05:50 05:50 WBC 11.09 H (4.0-11.0) K/uL RBC 4.69 (4.50-5.90) M/uL Hgb 13.7 (13.0-17.0) g/dL Hct 40.1 (38.0-50.0) % MCV 85.5 (80.0-98.0) fL MCH 29.2 (27.0-32.0) pg MCHC 34.2 (31.0-37.0) g/dL RDW Std Deviation 40.5 (28.0-62.0) fl RDW Coeff of Ethan 13 (11.0-15.0) % Plt Count 165 (150-400) K/uL MPV 10.90 (7.40-12.00) fL Add Manual Diff YES Neutrophils % (Manual) 52 (48.0-80.0) % Lymphocytes % (Manual) 23 (16.0-40.0) % Monocytes % (Manual) 2 (0.0-15.0) % Eosinophils % (Manual) 23 H (0.0-7.0) % Nucleated RBC % 0.0 /100WBC Absolute Seg Neuts 5.8 H (1.4-5.7) Lymphocytes # (Manual) 2.6 H (0.6-2.4) Monocytes # (Manual) 0.2 (0.0-0.8) Eosinophils # (Manual) 2.6 H (0.0-0.7) Nucleated RBCs # 0 K/uL Sodium 140 (136-146) mmol/L Potassium 3.8 (3.5-5.1) mmol/L Chloride 110 (98-110) mmol/L Carbon Dioxide 19 L (21-31) mmol/L BUN 7 (6.0-23.0) mg/dL Creatinine 0.8 (0.6-1.5) mg/dL Est Cr Clr Drug Dosing 132.04 mL/min Estimated GFR (MDRD) > 60.0 ml/min Glucose 67 (60-110) mg/dL Calcium 8.1 L (8.8-10.8) mg/dL Magnesium 1.4 L (1.5-2.3) mEq/L Total Bilirubin 0.7 (0.1-1.5) mg/dL AST 41 H (5-40) IU/L ALT 105 H (8-54) IU/L Alkaline Phosphatase 259 H (40-150) Total Protein 5.2 L (6.0-8.0) g/dL Albumin 3.2 L (3.5-5.0) g/dL Globulin 2.0 (2.0-3.5) g/dL Albumin/Globulin Ratio 1.6 (1.3-2.8) Med Orders - Current: Current Medications Benzocaine/Menthol (Cepacol Sore Throat) 1 lozenge MUCMEM ASDIRECTED PRN PRN Reason: Throat Cyclobenzaprine HCl (Flexeril) 10 mg PO TID PRN PRN Reason: Muscle Spasm Fentanyl (Sublimaze) 50 mcg IVPUSH Q5M PRN PRN Reason: Pain (severe 7-10) Stop: 05/01/17 10:55 Sodium Chloride (Normal Saline) 1,000 mls @ 100 mls/hr IV ASDIRECTED FRANKY Last Admin: 04/30/17 14:54 Dose: 150 mls/hr Piperacillin Sod/Tazobactam (Sod 3.375 gm/ Sodium Chloride) 50 mls @ 100 mls/ hr IV Q8H FRANKY Last Admin: 04/30/17 12:16 Dose: 100 mls/hr Metoclopramide HCl (Reglan) 5 mg PO Q6H PRN PRN Reason: Nausea/Vomiting Morphine Sulfate (Morphine Medical Laboratory Scientist 30 Mg In 30 Ml) 30 mg IV ASDIRECTED FRANKY PRN Reason: Protocol Ondansetron HCl (Zofran) 4 mg IVPUSH Q4H PRN PRN Reason: Nausea Last Admin: 04/30/17 13:47 Dose: 4 mg Oxycodone/Acetaminophen (Percocet 325-5 Mg) 2 tab PO Q4H PRN PRN Reason: Abdominal Pain Pantoprazole Sodium (Protonix) 40 mg PO [facility] Phenazopyridine HCl (Pyridium) 200 mg PO BID PRN PRN Reason: Dysuria Phenol/Menthol (Chloraseptic Throat [place]) 2 ml MUCMEM Q2H PRN PRN Reason: Sore Throat Promethazine HCl (Phenergan) 25 mg IM Q6H PRN PRN Reason: Nausea Scopolamine (Transderm-Scop) 1.5 mg TRDERM Q72H PRN PRN Reason: Nausea Sodium Chloride (Saline Flush) 10 ml FLUSH ASDIRECTED PRN PRN Reason: Keep Vein Open Last Admin: 04/29/17 07:27 Dose: 10 ml Sodium Chloride (Saline Flush) 2.5 ml FLUSH ASDIRECTED PRN PRN Reason: Keep Vein Open Last Admin: 04/29/17 07:26 Dose: 2.5 ml Temazepam (Restoril) 15 mg PO BEDTIME PRN PRN Reason: Insomnia Last Admin: 04/29/17 21:00 Dose: 15 mg Discontinued Medications Bupivacaine HCl (Marcaine 0.5%) Confirm Administered Dose 30 ml .ROUTE .STK-MED ONE Stop: 04/30/17 08:51 Bupivacaine HCl (Sensorcaine-Mpf 0.5%) Confirm Administered Dose 10 ml .ROUTE .STK-MED ONE Stop: 04/30/17 10:03 Ephedrine Sulfate (Ephedrine Sulfate) Confirm Administered Dose 50 mg .ROUTE .STK-MED ONE Stop: 04/30/17 09:20 Fentanyl (Sublimaze) Confirm Administered Dose 250 mcg .ROUTE .STK-MED ONE Stop: 04/30/17 08:07 Fentanyl (Sublimaze) Confirm Administered Dose 100 mcg .ROUTE .STK-MED ONE Stop: 04/30/17 10:31 Glycopyrrolate () Confirm Administered Dose 1 mg .ROUTE .STK-MED ONE Stop: 04/30/17 09:23 Hydromorphone HCl (Dilaudid) 1 mg IVPUSH ONETIME ONE Stop: 04/29/17 05:56 Last Admin: 04/29/17 06:08 Dose: 1 mg Hydromorphone HCl (Dilaudid) 1 mg IVPUSH ONETIME ONE Stop: 04/29/17 07:42 Last Admin: 04/29/17 07:45 Dose: 1 mg Hydromorphone HCl (Dilaudid) 1 mg IVPUSH Q2H PRN PRN Reason: Pain (severe 7-10) Last Admin: 04/29/17 10:48 Dose: 1 mg Hydromorphone HCl (Dilaudid Medical Laboratory Scientist 6 Mg In Ns 30 Ml) 6 mg IV ASDIRECTED PRN; Protocol PRN Reason: Pain Last Admin: 04/29/17 14:42 Dose: 6 mg Hydromorphone HCl (Dilaudid) Confirm Administered Dose 2 mg .ROUTE .STK-MED ONE Stop: 04/30/17 10:51 Sodium Chloride (Normal Saline) 1,000 mls @ 999 mls/hr IV STAT ONE Stop: 04/29/17 06:55 Last Admin: 04/29/17 06:08 Dose: 999 mls/hr Sodium Chloride (Normal Saline) 1,000 mls @ 150 mls/hr IV ASDIRECTED FRANKY Last Admin: 04/29/17 07:26 Dose: 150 mls/hr Potassium Chloride 40 meq/ (Sodium Chloride) 500 mls @ 125 mls/hr IV ONETIME ONE Stop: 04/29/17 12:29 Last Admin: 04/29/17 09:55 Dose: 125 mls/hr Sodium Chloride (Normal Saline) 1,000 mls @ 999 mls/hr IV .BOLUS FRANKY Last Admin: 04/29/17 08:45 Dose: 999 mls/hr Magnesium Sulfate 2 gm/ Premix 50 mls @ 50 mls/hr IV ONETIME ONE Stop: 04/30/17 13:28 Last Admin: 04/30/17 12:50 Dose: 50 mls/hr Lidocaine (Xylocaine-Mpf 2%) Confirm Administered Dose 5 ml .ROUTE .STK-MED ONE Stop: 04/30/17 08:07 Midazolam HCl (Versed 1 Mg/Ml) Confirm Administered Dose 2 mg .ROUTE .STK-MED ONE Stop: 04/30/17 08:07 Ondansetron HCl (Zofran) 4 mg IVPUSH ONETIME ONE Stop: 04/29/17 05:56 Last Admin: 04/29/17 06:08 Dose: 4 mg Ondansetron HCl (Zofran) Confirm Administered Dose 4 mg .ROUTE .STK-MED ONE Stop: 04/30/17 08:07 Pantoprazole Sodium (Protonix Iv) 40 mg IVPUSH Q24H FRANKY Last Admin: 04/30/17 08:13 Dose: 40 mg Phenylephrine HCl (Phenylephrine In Ns 100 Mcg/Ml) Confirm Administered Dose 1 mg .ROUTE .STK-MED ONE Stop: 04/30/17 09:22 Phenylephrine HCl (Bridger-Synephrine) Confirm Administered Dose 10 mg .ROUTE .STK- MED ONE Stop: 04/30/17 09:45 Propofol (Diprivan 20 Ml) Confirm Administered Dose 200 mg .ROUTE .STK-MED ONE Stop: 04/30/17 08:07 Rocuronium [place] (Zemuron) Confirm Administered Dose 100 mg .ROUTE .STK-MED ONE Stop: 04/30/17 08:07 Succinylcholine Chloride (Succinylcholine In Ns Pf) Confirm Administered Dose 200 mg .ROUTE .STK-MED ONE Stop: 04/30/17 08:07 - Exam Wound/Incisions: Healing Well, Drainage (around umbilical dressing. Dressing changed and wound is dry. ) General: Alert, Oriented, Cooperative, No Acute Distress Lungs: Normal Respiratory Effort Cardiovascular: Regular Rate GI/Abdominal Exam: Soft, Non-Tender, No Distention, No Mass, Other (dressings saturated with serosanguinoud drainage ) Extremities: Normal Inspection, Normal Range of Motion Skin: Warm, Dry, Intact Neurological: No New Focal Deficit, Normal Gait Psy/Mental Status: Alert, Normal Affect, Normal Mood - Problem List & Annotations (1) Eosinophilia SNOMED Code(s): 826481613 Code(s): D72.1 - EOSINOPHILIA Status: Acute Current Visit: Yes (2) Abdominal pain SNOMED Code(s): 44443605 Code(s): R10.9 - UNSPECIFIED ABDOMINAL PAIN Status: Acute Priority: Medium Current Visit: Yes Qualifiers: Abdominal location: epigastric Qualified Code(s): R10.13 - Epigastric pain (3) Gallstone pancreatitis SNOMED Code(s): 37110907 Code(s): K85.10 - BILIARY ACUTE PANCREATITIS WITHOUT NECROSIS OR INFECTION Status: Acute Current Visit: Yes (4) Abnormal liver function tests SNOMED Code(s): 076078687 Code(s): R79.89 - OTHER SPECIFIED ABNORMAL FINDINGS OF BLOOD CHEMISTRY Status: Acute Priority: Medium Current Visit: No (5) Diarrhea SNOMED Code(s): 83157393 Code(s): R19.7 - DIARRHEA, UNSPECIFIED Status: Acute Priority: Medium Current Visit: No Qualifiers: Diarrhea type: unspecified type Qualified Code(s): R19.7 - Diarrhea, unspecified - Problem List Review Problem List Initiated/Reviewed/Updated: Yes - My Orders Last 24 Hours: Active Orders 24 hr Category Date Time Status Bradycardia-Neuroaxis [employer] [RC] ROUTINE Care 04/30/17 10:55 Active Hypertension-Neuroaxis [employer] [RC] ROUTINE Care 04/30/17 10:55 Active Hypotension-Neuroaxis [employer] [RC] ROUTINE Care 04/30/17 10:55 Active Clear Liquid Diet [DIET] Diet 04/30/17 Dinner Active CBC WITH AUTO DIFF [HEME] AM Lab 05/01/17 05:11 Ordered CBC WITH AUTO DIFF [HEME] AM Lab 05/02/17 05:11 Ordered CBC WITH AUTO DIFF [HEME] AM Lab 05/03/17 05:11 Ordered COMPREHENSIVE METABOLIC PN,CMP [CHEM] AM Lab 05/01/17 05:11 Ordered COMPREHENSIVE METABOLIC PN,CMP [CHEM] AM Lab 05/02/17 05:11 Ordered COMPREHENSIVE METABOLIC PN,CMP [CHEM] AM Lab 05/03/17 05:11 Ordered MAGNESIUM [CHEM] AM Lab 05/01/17 05:11 Ordered MAGNESIUM [CHEM] AM Lab 05/02/17 05:11 Ordered MAGNESIUM [CHEM] AM Lab 05/03/17 05:11 Ordered Acetaminophen/oxyCODONE [Percocet 325-5 MG] Med 04/30/17 11:13 Active 2 tab PO Q4H PRN Benzocaine/Cetylpyrd/Menthol [Cepacol Sore Throat] Med 04/30/17 17:46 Ordered 1 lozenge MUCMEM ASDIRECTED PRN Cyclobenzaprine [Flexeril] Med 04/30/17 11:14 Active 10 mg PO TID PRN Metoclopramide [Reglan] Med 04/30/17 17:49 Ordered 5 mg PO Q6H PRN Morphine PF [Morphine NETWORK SECURITY ENGINEER 30 MG in 30 ML] Med 04/30/17 17:45 Ordered 30 mg IV ASDIRECTED Pantoprazole [ProTONIX] Med 05/01/17 07:30 Ordered 40 mg PO ACBREAKFAST Phenazopyridine [Pyridium] Med 04/30/17 17:43 Ordered 200 mg PO BID PRN Phenol [Chloraseptic Throat [place]] Med 04/30/17 17:48 Ordered 2 ml MUCMEM Q2H PRN Promethazine [Phenergan] Med 04/30/17 17:49 Ordered 25 mg IM Q6H PRN Scopolamine [Transderm-Scop] Med 04/30/17 17:49 Ordered 1.5 mg TRDERM Q72H PRN fentaNYL [Sublimaze] Med 04/30/17 10:55 Active 50 mcg IVPUSH Q5M PRN Medication Orders Benzocaine/Menthol (Cepacol Sore Throat) 1 lozenge MUCMEM ASDIRECTED PRN PRN Reason: Throat Cyclobenzaprine HCl (Flexeril) 10 mg PO TID PRN PRN Reason: Muscle Spasm Fentanyl (Sublimaze) 50 mcg IVPUSH Q5M PRN PRN Reason: Pain (severe 7-10) Stop: 05/01/17 10:55 Sodium Chloride (Normal Saline) 1,000 mls @ 100 mls/hr IV ASDIRECTED FRANKY Last Admin: 04/30/17 14:54 Dose: 150 mls/hr Infusion: 04/30/17 10:51 Dose: 150 mls/hr Admin: 04/30/17 04:10 Dose: 150 mls/hr Infusion: 04/30/17 03:42 Dose: 150 mls/hr Admin: 04/29/17 21:01 Dose: 150 mls/hr Infusion: 04/29/17 20:53 Dose: 150 mls/hr Admin: 04/29/17 14:12 Dose: 150 mls/hr Piperacillin Sod/Tazobactam (Sod 3.375 gm/ Sodium Chloride) 50 mls @ 100 mls/ hr IV Q8H FRANKY Last Admin: 04/30/17 12:16 Dose: 100 mls/hr Infusion: 04/30/17 02:48 Dose: 100 mls/hr Admin: 04/30/17 02:18 Dose: 100 mls/hr Infusion: 04/29/17 18:33 Dose: 100 mls/hr Admin: 04/29/17 18:03 Dose: 100 mls/hr Infusion: 04/29/17 11:53 Dose: 100 mls/hr Admin: 04/29/17 11:23 Dose: 100 mls/hr Metoclopramide HCl (Reglan) 5 mg PO Q6H PRN PRN Reason: Nausea/Vomiting Morphine Sulfate (Morphine Medical Laboratory Scientist 30 Mg In 30 Ml) 30 mg IV ASDIRECTED FRANKY PRN Reason: Protocol Ondansetron HCl (Zofran) 4 mg IVPUSH Q4H PRN PRN Reason: Nausea Last Admin: 04/30/17 13:47 Dose: 4 mg Admin: 04/29/17 16:24 Dose: 4 mg Oxycodone/Acetaminophen (Percocet 325-5 Mg) 2 tab PO Q4H PRN PRN Reason: Abdominal Pain Pantoprazole Sodium (Protonix) 40 mg PO [facility]ST [facility] Phenazopyridine HCl (Pyridium) 200 mg PO BID PRN PRN Reason: Dysuria Phenol/Menthol (Chloraseptic Throat [place]) 2 ml MUCMEM Q2H PRN PRN Reason: Sore Throat Promethazine HCl (Phenergan) 25 mg IM Q6H PRN PRN Reason: Nausea Scopolamine (Transderm-Scop) 1.5 mg TRDERM Q72H PRN PRN Reason: Nausea Sodium Chloride (Saline Flush) 10 ml FLUSH ASDIRECTED PRN PRN Reason: Keep Vein Open Last Admin: 04/29/17 07:27 Dose: 10 ml Sodium Chloride (Saline Flush) 2.5 ml FLUSH ASDIRECTED PRN PRN Reason: Keep Vein Open Last Admin: 04/29/17 07:26 Dose: 2.5 ml Temazepam (Restoril) 15 mg PO BEDTIME PRN PRN Reason: Insomnia Last Admin: 04/29/17 21:00 Dose: 15 mg - Plan Plan (Free Text/Narrative):: -Patient was c/o headache from dilaudid. Will switch to morphine NETWORK SECURITY ENGINEER. Encouraged him to use percocet for pain. -Patient has a sore throat. Was a moderately difficult airway which is most likely why he has the sore throat. Will write for cepacol lozenges and chloraseptic spray prn. -Pyridium for dysuria from [facility]cd[facility]ough. -Pantoprazole from IV to po. -Patient c/o post operative nausea especially when sitting up. Will write for scopalamine, reglan, phenergan prn -Abdominal umbilical dressing changed. Wound appears dry. Pressure dressing applied.
[2017-04-30] MEDS: Morphine PF 30 MG/30 ML PCA Vial IV SCH (18:14)
[2017-05-01] MEDS: Sodium Chloride 0.9% 1,000 ML IV SCH ×3 (00:23→20:01)
[2017-05-01] MEDS: Piperacillin/Tazobactam 3.375 GM in Sodium Chloride 0.9% 50 ML IV SCH (03:24)
[2017-05-01] MEDS: Pantoprazole 40 MG Tab.CR PO SCH (06:29)
[2017-05-01 06:38] LABS: CHLORIDE,CL 111 mmol/L (98-110); SODIUM,NA 140 mmol/L (136-146)
[2017-05-01] MEDS: Acetaminophen/oxyCODONE 325-5 MG Tab PO PRN ×4 (07:41→23:04)
[2017-05-01] MEDS: Morphine PF 30 MG/30 ML PCA Vial IV SCH ×2 (08:24→19:55)
--- NOTE | 2017-05-01 08:27 | PCM48HPAN ---
Post Anesthesia Note - EVALUATION WITHIN 48HRS OF ANESTHETIC Vital Signs in Normal Range: Yes Patient Participated in Evaluation: Yes Respiratory Function Stable: Yes Airway Patent: Yes Cardiovascular Function Stable: Yes Hydration Status Stable: Yes Pain Control Satisfactory: Yes Nausea and Vomiting Control Satisfactory: Yes Mental Status Recovered: Yes - COMMENTS/OBSERVATIONS Free Text/Narrative:: Pt had multiple complaints/issues yesterday in the immediate post operative period. First he had developed a ZHAO with a "drunk feeling" that was believed to be attributed to the dilaudid LIFE SCIENCE TEACHER, so he was switched to Morphine LIFE SCIENCE TEACHER. Pt also complained he had multiple periods of break through pain that he had trouble controlling with the LIFE SCIENCE TEACHER, I encouraged him to take/ask for him PO Percocet as it will provide him with longer pain relief and to use the LIFE SCIENCE TEACHER for Breakthrough pain then as needed. The patient also had some issues with N/V yesterday as well, it was hard to discern if this was anesthesia related, pain related, or pain medication related. Dr Cabrera has ordered Scop, Reglan, Zofran , and Phenergan. If the N/V persists, one time Dexamethasone 8mg IV dose x 1 maybe of benefit.
--- NOTE | 2017-05-01 09:13 | PCM.SURGPN ---
- General Info Date of Service: 05/01/17 Date of Surgery/Procedure: 04/30/17 POD#: 1 Functional Status: Reports: Other (Patient had one episode of emesis last night. Recieved IM phenergan with great results. Woke up this morning with RUQ pain. Given percocet with good relief. ) - Review of Systems General: Reports: No Symptoms HEENT: Reports: No Symptoms Pulmonary: Reports: No Symptoms Cardiovascular: Reports: No Symptoms Gastrointestinal: Reports: Abdominal Pain, Flatus Genitourinary: Reports: No Symptoms Musculoskeletal: Reports: No Symptoms - Patient Data Vitals - Most Recent: Last Vital Signs Temp 36.6 C 05/01/17 08:00 Pulse 86 05/01/17 08:00 Resp 18 05/01/17 08:00 BP 123/78 05/01/17 08:00 Pulse Ox 98 05/01/17 08:00 Weight - Most Recent: 93.1 kg I&O - Last 24 Hours: Intake & Output 04/30/17 05/01/17 05/01/17 22:59 06:59 14:59 Intake Total 1518 1648 Output Total 1310 2420 Balance 208 -772 Lab Results Last 24 Hrs: Laboratory Results - last 24 hr 05/01/17 05/01/17 Range/Units 06:05 06:05 WBC 7.49 (4.0-11.0) K/uL RBC 4.35 L (4.50-5.90) M/uL Hgb 12.7 L (13.0-17.0) g/dL Hct 37.4 L (38.0-50.0) % MCV 86.0 (80.0-98.0) fL MCH 29.2 (27.0-32.0) pg MCHC 34.0 (31.0-37.0) g/dL RDW Std Deviation 41.0 (28.0-62.0) fl RDW Coeff of Ethan 13 (11.0-15.0) % Plt Count 151 (150-400) K/uL MPV 10.40 (7.40-12.00) fL Neut % (Auto) 64.0 (48.0-80.0) % Lymph % (Auto) 24.2 (16.0-40.0) % [place] % (Auto) 7.7 (0.0-15.0) % Eos % (Auto) 4.1 (0.0-7.0) % Baso % (Auto) 0.0 (0.0-1.5) % Neut # (Auto) 4.8 (1.4-5.7) K/uL Lymph # (Auto) 1.8 (0.6-2.4) K/uL [place] # (Auto) 0.6 (0.0-0.8) K/uL Eos # (Auto) 0.3 (0.0-0.7) K/uL Baso # (Auto) 0.0 (0.0-0.1) K/uL Nucleated RBC % 0.0 /100WBC Nucleated RBCs # 0 K/uL Sodium 140 (136-146) mmol/L Potassium 4.0 (3.5-5.1) mmol/L Chloride 111 H (98-110) mmol/L Carbon Dioxide 20 L (21-31) mmol/L BUN 3 L (6.0-23.0) mg/dL Creatinine 0.9 (0.6-1.5) mg/dL Est Cr Clr Drug Dosing 117.37 mL/min Estimated GFR (MDRD) > 60.0 ml/min Glucose 80 (60-110) mg/dL Calcium 7.9 L (8.8-10.8) mg/dL Magnesium 1.5 (1.5-2.3) mEq/L Total Bilirubin 0.6 (0.1-1.5) mg/dL AST 35 (5-40) IU/L ALT 84 H (8-54) IU/L Alkaline Phosphatase 203 H (40-150) Total Protein 5.0 L (6.0-8.0) g/dL Albumin 3.1 L (3.5-5.0) g/dL Globulin 1.9 L (2.0-3.5) g/dL Albumin/Globulin Ratio 1.6 (1.3-2.8) Med Orders - Current: Current Medications Benzocaine/Menthol (Cepacol Sore Throat) 1 lozenge MUCMEM ASDIRECTED PRN PRN Reason: Throat Last Admin: 04/30/17 18:24 Dose: 1 lozenge Cyclobenzaprine HCl (Flexeril) 10 mg PO TID PRN PRN Reason: Muscle Spasm Fentanyl (Sublimaze) 50 mcg IVPUSH Q5M PRN PRN Reason: Pain (severe 7-10) Stop: 05/01/17 10:55 Sodium Chloride (Normal Saline) 1,000 mls @ 100 mls/hr IV ASDIRECTED [facility] Last Admin: 05/01/17 00:23 Dose: 150 mls/hr Piperacillin Sod/Tazobactam (Sod 3.375 gm/ Sodium Chloride) 50 mls @ 100 mls/ hr IV Q8H [facility] Last Infusion: 05/01/17 04:00 Dose: Infused Metoclopramide HCl (Reglan) 5 mg PO Q6H PRN PRN Reason: Nausea/Vomiting Morphine Sulfate (Morphine [employer] Developer 30 Mg In 30 Ml) 30 mg IV ASDIRECTED [facility] PRN Reason: Protocol Last Admin: 05/01/17 08:24 Dose: 30 mg Ondansetron HCl (Zofran) 4 mg IVPUSH Q4H PRN PRN Reason: Nausea Last Admin: 04/30/17 18:18 Dose: 4 mg Oxycodone/Acetaminophen (Percocet 325-5 Mg) 2 tab PO Q4H PRN PRN Reason: Abdominal Pain Last Admin: 05/01/17 07:41 Dose: 2 tab Pantoprazole Sodium (Protonix) 40 mg PO ACBREAKFAST [facility] Last Admin: 05/01/17 06:29 Dose: 40 mg Phenazopyridine HCl (Pyridium) 200 mg PO BID PRN PRN Reason: Dysuria Last Admin: 04/30/17 18:46 Dose: 200 mg Phenol/Menthol (Chloraseptic Throat [place]) 2 ml MUCMEM Q2H PRN PRN Reason: Sore Throat Promethazine HCl (Phenergan) 25 mg IM Q6H PRN PRN Reason: Nausea Last Admin: 04/30/17 19:15 Dose: 25 mg Scopolamine (Transderm-Scop) 1.5 mg TRDERM Q72H PRN PRN Reason: Nausea Last Admin: 04/30/17 18:18 Dose: 1.5 mg Sodium Chloride (Saline Flush) 10 ml FLUSH ASDIRECTED PRN PRN Reason: Keep Vein Open Last Admin: 04/29/17 07:27 Dose: 10 ml Sodium Chloride (Saline Flush) 2.5 ml FLUSH ASDIRECTED PRN PRN Reason: Keep Vein Open Last Admin: 04/29/17 07:26 Dose: 2.5 ml Temazepam (Restoril) 15 mg PO BEDTIME PRN PRN Reason: Insomnia Last Admin: 04/29/17 21:00 Dose: 15 mg Discontinued Medications Bupivacaine HCl (Marcaine 0.5%) Confirm Administered Dose 30 ml .ROUTE .STK-MED ONE Stop: 04/30/17 08:51 Bupivacaine HCl (Sensorcaine-Mpf 0.5%) Confirm Administered Dose 10 ml .ROUTE .STK-MED ONE Stop: 04/30/17 10:03 Ephedrine Sulfate (Ephedrine Sulfate) Confirm Administered Dose 50 mg .ROUTE .STK-MED ONE Stop: 04/30/17 09:20 Fentanyl (Sublimaze) Confirm Administered Dose 250 mcg .ROUTE .STK-MED ONE Stop: 04/30/17 08:07 Fentanyl (Sublimaze) Confirm Administered Dose 100 mcg .ROUTE .STK-MED ONE Stop: 04/30/17 10:31 Glycopyrrolate () Confirm Administered Dose 1 mg .ROUTE .STK-MED ONE Stop: 04/30/17 09:23 Hydromorphone HCl (Dilaudid) 1 mg IVPUSH ONETIME ONE Stop: 04/29/17 05:56 Last Admin: 04/29/17 06:08 Dose: 1 mg Hydromorphone HCl (Dilaudid) 1 mg IVPUSH ONETIME ONE Stop: 04/29/17 07:42 Last Admin: 04/29/17 07:45 Dose: 1 mg Hydromorphone HCl (Dilaudid) 1 mg IVPUSH Q2H PRN PRN Reason: Pain (severe 7-10) Last Admin: 04/29/17 10:48 Dose: 1 mg Hydromorphone HCl (Dilaudid [employer] Developer 6 Mg In Ns 30 Ml) 6 mg IV ASDIRECTED PRN; Protocol PRN Reason: Pain Last Admin: 04/29/17 14:42 Dose: 6 mg Hydromorphone HCl (Dilaudid) Confirm Administered Dose 2 mg .ROUTE .STK-MED ONE Stop: 04/30/17 10:51 Sodium Chloride (Normal Saline) 1,000 mls @ 999 mls/hr IV STAT ONE Stop: 04/29/17 06:55 Last Admin: 04/29/17 06:08 Dose: 999 mls/hr Sodium Chloride (Normal Saline) 1,000 mls @ 150 mls/hr IV ASDIRECTED [facility] Last Admin: 04/29/17 07:26 Dose: 150 mls/hr Potassium Chloride 40 meq/ (Sodium Chloride) 500 mls @ 125 mls/hr IV ONETIME ONE Stop: 04/29/17 12:29 Last Admin: 04/29/17 09:55 Dose: 125 mls/hr Sodium Chloride (Normal Saline) 1,000 mls @ 999 mls/hr IV .BOLUS [facility] Last Admin: 04/29/17 08:45 Dose: 999 mls/hr Magnesium Sulfate 2 gm/ Premix 50 mls @ 50 mls/hr IV ONETIME ONE Stop: 04/30/17 13:28 Last Admin: 04/30/17 12:50 Dose: 50 mls/hr Lidocaine (Xylocaine-Mpf 2%) Confirm Administered Dose 5 ml .ROUTE .STK-MED ONE Stop: 04/30/17 08:07 Midazolam HCl (Versed 1 Mg/Ml) Confirm Administered Dose 2 mg .ROUTE .STK-MED ONE Stop: 04/30/17 08:07 Ondansetron HCl (Zofran) 4 mg IVPUSH ONETIME ONE Stop: 04/29/17 05:56 Last Admin: 04/29/17 06:08 Dose: 4 mg Ondansetron HCl (Zofran) Confirm Administered Dose 4 mg .ROUTE .STK-MED ONE Stop: 04/30/17 08:07 Pantoprazole Sodium (Protonix Iv) 40 mg IVPUSH Q24H [facility] Last Admin: 04/30/17 08:13 Dose: 40 mg Phenylephrine HCl (Phenylephrine In Ns 100 Mcg/Ml) Confirm Administered Dose 1 mg .ROUTE .STK-MED ONE Stop: 04/30/17 09:22 Phenylephrine HCl (Bridger-Synephrine) Confirm Administered Dose 10 mg .ROUTE .STK- MED ONE Stop: 04/30/17 09:45 Propofol (Diprivan 20 Ml) Confirm Administered Dose 200 mg .ROUTE .STK-MED ONE Stop: 04/30/17 08:07 Rocuronium [place] (Zemuron) Confirm Administered Dose 100 mg .ROUTE .STK-MED ONE Stop: 04/30/17 08:07 Succinylcholine Chloride (Succinylcholine In Ns Pf) Confirm Administered Dose 200 mg .ROUTE .STK-MED ONE Stop: 04/30/17 08:07 - Exam Wound/Incisions: Healing Well, Dressing Dry and Intact General: Alert, Oriented Neck: Supple Lungs: Clear to Auscultation, Normal Respiratory Effort Cardiovascular: Regular Rate, Regular Rhythm GI/Abdominal Exam: Soft, Non-Tender, No Distention, No Mass Extremities: Normal Inspection Skin: Warm, Dry, Intact - Problem List & Annotations (1) Eosinophilia SNOMED Code(s): 085948603 Code(s): D72.1 - EOSINOPHILIA Status: Acute Current Visit: Yes (2) Abdominal pain SNOMED Code(s): 59765184 Code(s): R10.9 - UNSPECIFIED ABDOMINAL PAIN Status: Acute Priority: Medium Current Visit: Yes Qualifiers: Abdominal location: epigastric Qualified Code(s): R10.13 - Epigastric pain (3) Gallstone pancreatitis SNOMED Code(s): 09631483 Code(s): K85.10 - BILIARY ACUTE PANCREATITIS WITHOUT NECROSIS OR INFECTION Status: Acute Current Visit: Yes (4) Abnormal liver function tests SNOMED Code(s): 965981410 Code(s): R79.89 - OTHER SPECIFIED ABNORMAL FINDINGS OF BLOOD CHEMISTRY Status: Acute Priority: Medium Current Visit: No (5) Diarrhea SNOMED Code(s): 75181155 Code(s): R19.7 - DIARRHEA, UNSPECIFIED Status: Acute Priority: Medium Current Visit: No Qualifiers: Diarrhea type: unspecified type Qualified Code(s): R19.7 - Diarrhea, unspecified - Problem List Review Problem List Initiated/Reviewed/Updated: Yes - My Orders Last 24 Hours: Active Orders 24 hr Category Date Time Status Bradycardia-Neuroaxis [employer] [RC] ROUTINE Care 04/30/17 10:55 Active Hypertension-Neuroaxis [employer] [RC] ROUTINE Care 04/30/17 10:55 Active Hypotension-Neuroaxis [employer] [RC] ROUTINE Care 04/30/17 10:55 Active Clear Liquid Diet [DIET] Diet 04/30/17 Dinner Active CBC WITH AUTO DIFF [HEME] AM Lab 05/02/17 05:11 Ordered CBC WITH AUTO DIFF [HEME] AM Lab 05/03/17 05:11 Ordered COMPREHENSIVE METABOLIC PN,CMP [CHEM] AM Lab 05/02/17 05:11 Ordered COMPREHENSIVE METABOLIC PN,CMP [CHEM] AM Lab 05/03/17 05:11 Ordered MAGNESIUM [CHEM] AM Lab 05/02/17 05:11 Ordered MAGNESIUM [CHEM] AM Lab 05/03/17 05:11 Ordered Acetaminophen/oxyCODONE [Percocet 325-5 MG] Med 04/30/17 11:13 Active 2 tab PO Q4H PRN Benzocaine/Cetylpyrd/Menthol [Cepacol Sore Throat] Med 04/30/17 17:46 Active 1 lozenge MUCMEM ASDIRECTED PRN Cyclobenzaprine [Flexeril] Med 04/30/17 11:14 Active 10 mg PO TID PRN Metoclopramide [Reglan] Med 04/30/17 17:49 Active 5 mg PO Q6H PRN Morphine PF [Morphine [employer]ATION OFFICER 30 MG in 30 ML] Med 04/30/17 17:45 Active 30 mg IV ASDIRECTED Pantoprazole [ProTONIX] Med 05/01/17 07:30 Active 40 mg PO ACBREAKFAST Phenazopyridine [Pyridium] Med 04/30/17 17:43 Active 200 mg PO BID PRN Phenol [Chloraseptic Throat [place]] Med 04/30/17 17:48 Active 2 ml MUCMEM Q2H PRN Promethazine [Phenergan] Med 04/30/17 17:49 Active 25 mg IM Q6H PRN Scopolamine [Transderm-Scop] Med 04/30/17 17:49 Active 1.5 mg TRDERM Q72H PRN fentaNYL [Sublimaze] Med 04/30/17 10:55 Active 50 mcg IVPUSH Q5M PRN Medication Orders Benzocaine/Menthol (Cepacol Sore Throat) 1 lozenge MUCMEM ASDIRECTED PRN PRN Reason: Throat Last Admin: 04/30/17 18:24 Dose: 1 lozenge Cyclobenzaprine HCl (Flexeril) 10 mg PO TID PRN PRN Reason: Muscle Spasm Fentanyl (Sublimaze) 50 mcg IVPUSH Q5M PRN PRN Reason: Pain (severe 7-10) Stop: 05/01/17 10:55 Sodium Chloride (Normal Saline) 1,000 mls @ 100 mls/hr IV ASDIRECTED [facility] Last Admin: 05/01/17 00:23 Dose: 150 mls/hr Infusion: 05/01/17 00:19 Dose: 150 mls/hr Admin: 04/30/17 14:54 Dose: 150 mls/hr Infusion: 04/30/17 10:51 Dose: 150 mls/hr Admin: 04/30/17 04:10 Dose: 150 mls/hr Infusion: 04/30/17 03:42 Dose: 150 mls/hr Admin: 04/29/17 21:01 Dose: 150 mls/hr Infusion: 04/29/17 20:53 Dose: 150 mls/hr Admin: 04/29/17 14:12 Dose: 150 mls/hr Piperacillin Sod/Tazobactam (Sod 3.375 gm/ Sodium Chloride) 50 mls @ 100 mls/ hr IV Q8H [facility] Last Infusion: 05/01/17 04:00 Dose: 100 mls/hr Admin: 05/01/17 03:24 Dose: 100 mls/hr Infusion: 04/30/17 19:00 Dose: 100 mls/hr Admin: 04/30/17 18:18 Dose: 100 mls/hr Infusion: 04/30/17 12:46 Dose: 100 mls/hr Admin: 04/30/17 12:16 Dose: 100 mls/hr Infusion: 04/30/17 02:48 Dose: 100 mls/hr Admin: 04/30/17 02:18 Dose: 100 mls/hr Infusion: 04/29/17 18:33 Dose: 100 mls/hr Admin: 04/29/17 18:03 Dose: 100 mls/hr Infusion: 04/29/17 11:53 Dose: 100 mls/hr Admin: 04/29/17 11:23 Dose: 100 mls/hr Metoclopramide HCl (Reglan) 5 mg PO Q6H PRN PRN Reason: Nausea/Vomiting Morphine Sulfate (Morphine Experimental Electronics Developer 30 Mg In 30 Ml) 30 mg IV ASDIRECTED [facility] PRN Reason: Protocol Last Admin: 05/01/17 08:24 Dose: 30 mg Admin: 04/30/17 18:14 Dose: 30 mg Ondansetron HCl (Zofran) 4 mg IVPUSH Q4H PRN PRN Reason: Nausea Last Admin: 04/30/17 18:18 Dose: 4 mg Admin: 04/30/17 13:47 Dose: 4 mg Admin: 04/29/17 16:24 Dose: 4 mg Oxycodone/Acetaminophen (Percocet 325-5 Mg) 2 tab PO Q4H PRN PRN Reason: Abdominal Pain Last Admin: 05/01/17 07:41 Dose: 2 tab Pantoprazole Sodium (Protonix) 40 mg PO ACBREAKFAST [place] Last Admin: 05/01/17 06:29 Dose: 40 mg Phenazopyridine HCl (Pyridium) 200 mg PO BID PRN PRN Reason: Dysuria Last Admin: 04/30/17 18:46 Dose: 200 mg Phenol/Menthol (Chloraseptic Throat [place]) 2 ml MUCMEM Q2H PRN PRN Reason: Sore Throat Promethazine HCl (Phenergan) 25 mg IM Q6H PRN PRN Reason: Nausea Last Admin: 04/30/17 19:15 Dose: 25 mg Scopolamine (Transderm-Scop) 1.5 mg TRDERM Q72H PRN PRN Reason: Nausea Last Admin: 04/30/17 18:18 Dose: 1.5 mg Sodium Chloride (Saline Flush) 10 ml FLUSH ASDIRECTED PRN PRN Reason: Keep Vein Open Last Admin: 04/29/17 07:27 Dose: 10 ml Sodium Chloride (Saline Flush) 2.5 ml FLUSH ASDIRECTED PRN PRN Reason: Keep Vein Open Last Admin: 04/29/17 07:26 Dose: 2.5 ml Temazepam (Restoril) 15 mg PO BEDTIME PRN PRN Reason: Insomnia Last Admin: 04/29/17 21:00 Dose: 15 mg - Plan Plan (Free Text/Narrative):: -Neuro: 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 Encouraged percocet use. Will D/C tomorrow. Flexeril prn muscle spasms -Cards: VSS. Encourage OOB acitivty and IS use. -GI: Advance diet to regular. PRN meds for nausea -Renal: Good urine output. Dysuria resolved. BUN/Cr WNL -IS: IV zosyn d/c today. WBC and Eosinophil count normal. -Dispo: Anticipate d/c tomorrow
[2017-05-01] MEDS: Ondansetron 4 MG/2 ML SDV IVPUSH PRN ×2 (10:55→17:43)
[2017-05-02] MEDS: Acetaminophen/oxyCODONE 325-5 MG Tab PO PRN ×2 (03:25→08:45)
[2017-05-02] MEDS: Sodium Chloride 0.9% 1,000 ML IV SCH (06:07)
[2017-05-02] MEDS: Pantoprazole 40 MG Tab.CR PO SCH (06:31)
[2017-05-02 06:33] LABS: CHLORIDE,CL 108 mmol/L (98-110); SODIUM,NA 138 mmol/L (136-146)
[2017-05-02] MEDS: Morphine PF 30 MG/30 ML PCA Vial IV SCH (08:06)
[2017-05-02] MEDS ORDERED: Magnesium Sulfate/Water 2 GM in Premix Bag 1 BAG IV ONE (08:07)
[2017-05-02 08:10] VITALS: BP 126/77
--- NOTE | 2017-05-02 09:20 | PCM.DCSUM1 ---
Discharge Summary - Hospital Course Free Text/Narrative:: adia is a 41 year old male who presents to the ED with RUQ pain, transaminitis , and a recent history of eosinophilia, gallstone pancreatitis, and transaminitis. He developed abdominal discomfort and diarrhea 2 weeks ago. He was admitted to the hospital earlier this week. He had elevated pancreatic enzymes and transaminitis. A CT on admission revealed cholelithiasis with no evidence of cholecystitis and non-specific colonic findings suggesting enteritis. He was incidentally found to have an eosinophilia of 35%. He has had a colonoscopy and EGD in the past that revealed gastritis. He underwent a RUQ US that was normal. An MRCP showed no evidence of stones in the CBD or gallbladder. He did have a small amount of rajesh-cholecystitic fluid that suggested possible cholecystitis. He was treated conservatively with fluids and bowel rest. His LFTs improved and lipase and amylase came down. He was discharged home with instructions for close follow up. He was to see his marketing officer prior to having his gallbladder removed. The thought was that he could have a GI source/inflammatory bowel disorder causing his symptoms. The marketing officer believed that he needed his GB out before any scopes to look at his GI tract. The patient was pain free on discharge however yesterday he developed sharp epigastric pain that radiated to his RUQ. He presented to the ED this am and his LFTs were elevated again, however his amylase and lipase were normal. He was admitted to the hospitalist service. A repeat US was normal. After a long discussion regarding the options, the decision was made to proceed with a laparoscop[ic cholecystectomy. This went well with no intraoperative complications. His gallbladder was mild to moderately inflamed consistent with chronic cholecystitis. He was nauseated post oepratively and had one emesis. His WBC retruned to normal and his LFTs improved. He was slowly advanced to a regular diet. This morning he is ambulating, vitals are stable, he is having adequate UOP and his pain is well controlled. The patient was cleared for discharge. - Discharge Data Discharge Date: 05/02/17 Discharge Disposition: Home, Self-Care 01 Condition: Stable - Discharge Diagnosis/Problem(s) (1) Eosinophilia SNOMED Code(s): 328095891 ICD Code: D72.1 - EOSINOPHILIA Status: Acute Current Visit: Yes (2) Abdominal pain SNOMED Code(s): 38483627 ICD Code: R10.9 - UNSPECIFIED ABDOMINAL PAIN Status: Acute Priority: Medium Current Visit: Yes Qualifiers: Abdominal location: epigastric Qualified Code(s): R10.13 - Epigastric pain (3) Gallstone pancreatitis SNOMED Code(s): 46226666 ICD Code: K85.10 - BILIARY ACUTE PANCREATITIS WITHOUT NECROSIS OR INFECTION Status: Acute Current Visit: Yes (4) Abnormal liver function tests SNOMED Code(s): 995846960 ICD Code: R79.89 - OTHER SPECIFIED ABNORMAL FINDINGS OF BLOOD CHEMISTRY Status: Acute Priority: Medium Current Visit: No (5) Diarrhea SNOMED Code(s): 39245665 ICD Code: R19.7 - DIARRHEA, UNSPECIFIED Status: Acute Priority: Medium Current Visit: No Qualifiers: Diarrhea type: unspecified type Qualified Code(s): R19.7 - Diarrhea, unspecified (6) Chronic cholecystitis due to cholelithiasis with choledocholithiasis SNOMED Code(s): 4525855850802723 ICD Code: K80.64 - CALCULUS OF GB AND BILE DUCT W CHRONIC CHOLECYST W/O OBST Status: Acute Current Visit: Yes - Patient Summary/Data Operative Procedure(s) Performed: Laparoscopic cholecystectomy - Patient Instructions Diet: Regular Diet as Tolerated Activity: No Lifting Over 20 Pounds (for one month ), Rest and Relax Today Driving: Do Not Drive Showering/Bathing: May Shower, No Tub Bathing/Swimming (for 2 weeks ) Notify Provider of: Fever, Increased Pain, Nausea and/or Vomiting - Discharge Plan Prescriptions/Med Rec: Cyclobenzaprine [Flexeril] 10 mg PO TID PRN #30 tablet PRN Reason: Muscle Spasm Ondansetron [Zofran] 4 mg PO Q6H #20 tab Home Medications: Home Meds Hyoscyamine Sulfate 1 tab PO ASDIRECTED PRN 04/23/17 [History] Omeprazole 20 mg PO DAILY 04/23/17 [History] traMADol [Ultram] 1 tab PO Q6HR PRN 04/29/17 [History] Cyclobenzaprine [Flexeril] 10 mg PO TID PRN #30 tablet 05/02/17 [Rx] Ondansetron [Zofran] 4 mg PO Q6H #20 tab 05/02/17 [Rx] Patient Handouts: Cyclobenzaprine tablets, Acetaminophen; Oxycodone capsules, Ondansetron tablets, Laparoscopic Cholecystectomy, Care After, [id number] Referrals: Estefany Cabrera MD [Physician] - 05/10/17 10:00 am - Discharge Summary/Plan Comment DC Time >30 min.: No - General Info Date of Service: 05/02/17 Functional Status: Reports: Pain Controlled, Tolerating Diet, Ambulating, Urinating, Incentive Spirometry - Review of Systems General: Reports: No Symptoms HEENT: Reports: No Symptoms Pulmonary: Reports: No Symptoms Cardiovascular: Reports: No Symptoms Gastrointestinal: Reports: No Symptoms - Patient Data Vitals - Most Recent: Last Vital Signs Temp 37.0 C 05/02/17 08:00 Pulse 113 H 05/02/17 08:00 Resp 18 05/02/17 08:00 BP 126/77 05/02/17 08:00 Pulse Ox 90 L 05/02/17 08:00 Weight - Most Recent: 93.1 kg I&O - Last 24 hours: Intake & Output 05/01/17 05/02/17 05/02/17 22:59 06:59 14:59 Intake Total 3400 1670 Output Total 1950 570 Balance 1450 1100 Lab Results - Last 24 hrs: Laboratory Results - last 24 hr 05/02/17 05/02/17 Range/Units 05:40 05:40 WBC 9.40 (4.0-11.0) K/uL RBC 4.31 L (4.50-5.90) M/uL Hgb 12.7 L (13.0-17.0) g/dL Hct 37.3 L (38.0-50.0) % MCV 86.5 (80.0-98.0) fL MCH 29.5 (27.0-32.0) pg MCHC 34.0 (31.0-37.0) g/dL RDW Std Deviation 41.6 (28.0-62.0) fl RDW Coeff of Ethan 13 (11.0-15.0) % Plt Count 156 (150-400) K/uL MPV 10.50 (7.40-12.00) fL Neut % (Auto) 72.4 (48.0-80.0) % Lymph % (Auto) 14.3 L (16.0-40.0) % Mccormick % (Auto) 7.9 (0.0-15.0) % Eos % (Auto) 5.3 (0.0-7.0) % Baso % (Auto) 0.1 (0.0-1.5) % Neut # (Auto) 6.8 H (1.4-5.7) K/uL Lymph # (Auto) 1.3 (0.6-2.4) K/uL Mccormick # (Auto) 0.7 (0.0-0.8) K/uL Eos # (Auto) 0.5 (0.0-0.7) K/uL Baso # (Auto) 0.0 (0.0-0.1) K/uL Nucleated RBC % 0.0 /100WBC Nucleated RBCs # 0 K/uL Sodium 138 (136-146) mmol/L Potassium 3.6 (3.5-5.1) mmol/L Chloride 108 (98-110) mmol/L Carbon Dioxide 21 (21-31) mmol/L BUN 4 L (6.0-23.0) mg/dL Creatinine 0.8 (0.6-1.5) mg/dL Est Cr Clr Drug Dosing 132.04 mL/min Estimated GFR (MDRD) > 60.0 ml/min Glucose 90 (60-110) mg/dL Calcium 7.9 L (8.8-10.8) mg/dL Magnesium 1.2 L (1.5-2.3) mEq/L Total Bilirubin 0.6 (0.1-1.5) mg/dL AST 32 (5-40) IU/L ALT 71 H (8-54) IU/L Alkaline Phosphatase 197 H (40-150) Total Protein 5.3 L (6.0-8.0) g/dL Albumin 3.3 L (3.5-5.0) g/dL Globulin 2.0 (2.0-3.5) g/dL Albumin/Globulin Ratio 1.7 (1.3-2.8) Med Orders - Current: Current Medications Cyclobenzaprine HCl (Flexeril) 10 mg PO TID PRN PRN Reason: Muscle Spasm Last Admin: 05/01/17 13:48 Dose: 10 mg Sodium Chloride (Normal Saline) 1,000 mls @ 100 mls/hr IV ASDIRECTED FRANKY Last Admin: 05/02/17 06:07 Dose: 100 mls/hr Ondansetron HCl (Zofran) 4 mg IVPUSH Q4H PRN PRN Reason: Nausea Last Admin: 05/01/17 17:43 Dose: 4 mg Oxycodone/Acetaminophen (Percocet 325-5 Mg) 2 tab PO Q4H PRN PRN Reason: Abdominal Pain Last Admin: 05/02/17 08:45 Dose: 2 tab Pantoprazole Sodium (Protonix) 40 mg PO ACBREAKFAST FRANKY Last Admin: 05/02/17 06:31 Dose: 40 mg Promethazine HCl (Phenergan) 25 mg IM Q6H PRN PRN Reason: Nausea Last Admin: 04/30/17 19:15 Dose: 25 mg Scopolamine (Transderm-Scop) 1.5 mg TRDERM Q72H PRN PRN Reason: Nausea Last Admin: 04/30/17 18:18 Dose: 1.5 mg Sodium Chloride (Saline Flush) 10 ml FLUSH ASDIRECTED PRN PRN Reason: Keep Vein Open Last Admin: 04/29/17 07:27 Dose: 10 ml Sodium Chloride (Saline Flush) 2.5 ml FLUSH ASDIRECTED PRN PRN Reason: Keep Vein Open Last Admin: 04/29/17 07:26 Dose: 2.5 ml Temazepam (Restoril) 15 mg PO BEDTIME PRN PRN Reason: Insomnia Last Admin: 04/29/17 21:00 Dose: 15 mg Discontinued Medications Benzocaine/Menthol (Cepacol Sore Throat) 1 lozenge MUCMEM ASDIRECTED PRN PRN Reason: Throat Last Admin: 04/30/17 18:24 Dose: 1 lozenge Bupivacaine HCl (Marcaine 0.5%) Confirm Administered Dose 30 ml .ROUTE .STK-MED ONE Stop: 04/30/17 08:51 Bupivacaine HCl (Sensorcaine-Mpf 0.5%) Confirm Administered Dose 10 ml .ROUTE .STK-MED ONE Stop: 04/30/17 10:03 Ephedrine Sulfate (Ephedrine Sulfate) Confirm Administered Dose 50 mg .ROUTE .STK-MED ONE Stop: 04/30/17 09:20 Fentanyl (Sublimaze) Confirm Administered Dose 250 mcg .ROUTE .STK-MED ONE Stop: 04/30/17 08:07 Fentanyl (Sublimaze) Confirm Administered Dose 100 mcg .ROUTE .STK-MED ONE Stop: 04/30/17 10:31 Fentanyl (Sublimaze) 50 mcg IVPUSH Q5M PRN PRN Reason: Pain (severe 7-10) Stop: 05/01/17 10:55 Glycopyrrolate () Confirm Administered Dose 1 mg .ROUTE .STK-MED ONE Stop: 04/30/17 09:23 Hydromorphone HCl (Dilaudid) 1 mg IVPUSH ONETIME ONE Stop: 04/29/17 05:56 Last Admin: 04/29/17 06:08 Dose: 1 mg Hydromorphone HCl (Dilaudid) 1 mg IVPUSH ONETIME ONE Stop: 04/29/17 07:42 Last Admin: 04/29/17 07:45 Dose: 1 mg Hydromorphone HCl (Dilaudid) 1 mg IVPUSH Q2H PRN PRN Reason: Pain (severe 7-10) Last Admin: 04/29/17 10:48 Dose: 1 mg Hydromorphone HCl (Dilaudid Inventory Control Assistant 6 Mg In Ns 30 Ml) 6 mg IV ASDIRECTED PRN; Protocol PRN Reason: Pain Last Admin: 04/29/17 14:42 Dose: 6 mg Hydromorphone HCl (Dilaudid) Confirm Administered Dose 2 mg .ROUTE .STK-MED ONE Stop: 04/30/17 10:51 Sodium Chloride (Normal Saline) 1,000 mls @ 999 mls/hr IV STAT ONE Stop: 04/29/17 06:55 Last Admin: 04/29/17 06:08 Dose: 999 mls/hr Sodium Chloride (Normal Saline) 1,000 mls @ 150 mls/hr IV ASDIRECTED FRANKY Last Admin: 04/29/17 07:26 Dose: 150 mls/hr Potassium Chloride 40 meq/ (Sodium Chloride) 500 mls @ 125 mls/hr IV ONETIME ONE Stop: 04/29/17 12:29 Last Admin: 04/29/17 09:55 Dose: 125 mls/hr Sodium Chloride (Normal Saline) 1,000 mls @ 999 mls/hr IV .BOLUS FRANKY Last Admin: 04/29/17 08:45 Dose: 999 mls/hr Piperacillin Sod/Tazobactam (Sod 3.375 gm/ Sodium Chloride) 50 mls @ 100 mls/ hr IV Q8H [facility] Last Infusion: 05/01/17 04:00 Dose: Infused Magnesium Sulfate 2 gm/ Premix 50 mls @ 50 mls/hr IV ONETIME ONE Stop: 04/30/17 13:28 Last Admin: 04/30/17 12:50 Dose: 50 mls/hr Magnesium Sulfate 2 gm/ Premix 50 mls @ 50 mls/hr IV ONETIME ONE Stop: 05/02/17 09:06 Last Admin: 05/02/17 08:28 Dose: 50 mls/hr Lidocaine (Xylocaine-Mpf 2%) Confirm Administered Dose 5 ml .ROUTE .STK-MED ONE Stop: 04/30/17 08:07 Metoclopramide HCl (Reglan) 5 mg PO Q6H PRN PRN Reason: Nausea/Vomiting Midazolam HCl (Versed 1 Mg/Ml) Confirm Administered Dose 2 mg .ROUTE .STK-MED ONE Stop: 04/30/17 08:07 Morphine Sulfate (Morphine Inventory Control Assistant 30 Mg In 30 Ml) 30 mg IV ASDIRECTED [facility] PRN Reason: Protocol Last Admin: 05/02/17 08:06 Dose: 30 mg Ondansetron HCl (Zofran) 4 mg IVPUSH ONETIME ONE Stop: 04/29/17 05:56 Last Admin: 04/29/17 06:08 Dose: 4 mg Ondansetron HCl (Zofran) Confirm Administered Dose 4 mg .ROUTE .STK-MED ONE Stop: 04/30/17 08:07 Pantoprazole Sodium (Protonix Iv) 40 mg IVPUSH Q24H [facility] Last Admin: 04/30/17 08:13 Dose: 40 mg Phenazopyridine HCl (Pyridium) 200 mg PO BID PRN PRN Reason: Dysuria Last Admin: 04/30/17 18:46 Dose: 200 mg Phenol/Menthol (Chloraseptic Throat Kelly) 2 ml MUCMEM Q2H PRN PRN Reason: Sore Throat Phenylephrine HCl (Phenylephrine In Ns 100 Mcg/Ml) Confirm Administered Dose 1 mg .ROUTE .STK-MED ONE Stop: 04/30/17 09:22 Phenylephrine HCl (Bridger-Synephrine) Confirm Administered Dose 10 mg .ROUTE .STK- MED ONE Stop: 04/30/17 09:45 Propofol (Diprivan 20 Ml) Confirm Administered Dose 200 mg .ROUTE .STK-MED ONE Stop: 04/30/17 08:07 Rocuronium [place] (Zemuron) Confirm Administered Dose 100 mg .ROUTE .STK-MED ONE Stop: 04/30/17 08:07 Succinylcholine Chloride (Succinylcholine In Ns Pf) Confirm Administered Dose 200 mg .ROUTE .STK-MED ONE Stop: 04/30/17 08:07 - Exam Quality Assessment: Reports: Supplemental Oxygen General: Reports: Alert, Oriented HEENT: Reports: Pupils Equal, Pupils Reactive Neck: Reports: Supple Lungs: Reports: Normal Respiratory Effort Cardiovascular: Reports: Regular Rate GI/Abdominal Exam: Soft, Non-Tender, No Distention, No Mass Skin: Reports: Warm, Dry, Intact Wound/Incisions: Reports: No Drainage Neurological: Reports: No New Focal Deficit Psy/Mental Status: Reports: Alert, Normal Affect, Normal Mood *Q Meaningful Use (DIS) - VTE *Q VTE Criteria *Q: - Stroke *Q Stroke Criteria *Q: - AMI *Q AMI Criteria *Q:
== END 2017-05-02 10:30 | disposition home or self-care (01) | DRG 263 ==
LOC: MW.ED 05:35 → OBSVTOIN 07:14 → MW.MS 07:14
PROVIDERS: ADMIT Internal Medicine; ATTEND Surgery
PROC: 0FT44ZZ Resection of Gallbladder, Percutaneous Endoscopic Approach (ICD-10-PCS; principal; 2017-04-29)
DX: K85.10 Biliary acute pancreatitis without necrosis or infection (principal); K80.64 Calculus of gallbladder and bile duct with chronic cholecystitis without obstruction; D72.1 Eosinophilia; R79.89 Other specified abnormal findings of blood chemistry; R19.7 Diarrhea, unspecified; K21.9 Gastro-esophageal reflux disease without esophagitis; Z79.899 Other long term (current) drug therapy; Z88.8 Allergy status to other drugs, medicaments and biological substances; R10.13 Epigastric pain; R11.2 Nausea with vomiting, unspecified
CPT/HCPCS: 00790; 36415; 76705; 76705-26; 80053; 82150; 83605; 83690; 83735; 85025; 88304; 96361; 96374; 96375; 96376; 99284; 99284-25; A9270-GY; C9113; J1170; J2250; J2274; J2370; J2405; J2543; J2550; J2704; J3010; J3475; J3480; J7040; J7050